=== PATIENT | female | born 1990 | race Caucasian/White ===

== ENCOUNTER 2019-04-30 10:12 | Emergency (ER) | payer OTHER ==
--- OUTSIDE RECORDS SUMMARY | 2019-04-30 10:14 | XMS REPORT ---
:1990 Author Organization [facility] Address [address] [place] [address] [place] [id number] Care Team Providers Name Role Phone Unavailable Unavailable Unavailable Problems This patient has no known problems. Allergies, Adverse Reactions, Alerts This patient has no known allergies or adverse reactions. Medications This patient has no known medications. Encounters Start End Encounter Admission Attending Care Care Encounter Date/Time Date/Time Type Type Clinicians Facility Department ID 2019-03-17 2019-03-17 Outpatient [facility] [id number] 15:36:00 15:36:00
--- OUTSIDE RECORDS SUMMARY | 2019-04-30 10:14 | XMS REPORT | Summary of Care ---
:1990 Author Organization [facility] [place] [address] Care Team Providers Name Role Phone Jorge A Frankisarah Cortez Primary Care Provider Reason for Visit Reason Comments Migraine Encounter Details Date Type Department Care Team Description 04/06/2019 Office Visit [facility] Kleber Rao MD Migraine Neurosurgery [address] [facility], [address] [place] [address] [place] [address] Allergies Active Allergy Reactions Severity Noted Date Comments Adhesive Rash High 04/06/2019 documented as of this encounter (statuses as of 04/08/2019) Medications No known medicationsdocumented as of this encounter (statuses as of 04/08/2019) Active Problems No known active problemsdocumented as of this encounter (statuses as of 2019) Social History Tobacco Use Types Packs/Day Years Used Date Never Smoker Smokeless Tobacco: Never Used Alcohol Use Drinks/Week oz/Week Comments Yes 3 Glasses of wine 3.0 Sex Assigned at Date Recorded Not on file Job Start Date Occupation Industry Not on file Not on file Not on file Travel History Travel Start Travel End No recent travel history available. documented as of this encounter Last Filed Vital Signs Vital Sign Reading Time Taken Comments Blood Pressure 121/83 04/06/2019 9:23 AM COUNTERSINKER Pulse 106 04/06/2019 9:23 AM COUNTERSINKER Temperature 36.5 C (97.7 F) 04/06/2019 9:23 AM COUNTERSINKER Respiratory Rate 18 04/06/2019 9:23 AM COUNTERSINKER Oxygen Saturation 100% 04/06/2019 9:23 AM COUNTERSINKER Inhaled Oxygen Concentration - - Weight 86.5 kg (190 lb 9.6 oz) 04/06/2019 9:23 AM COUNTERSINKER Height 162.6 cm (5' 4") 04/06/2019 9:23 AM COUNTERSINKER Body Mass Index 32.72 04/06/2019 9:23 AM COUNTERSINKER documented in this encounter Patient Instructions Patient InstructionsJenise Cheney NP - 04/06/2019 9:00 AM CSTFollow up as needed. Your Body mass index is 32.72 kg/m. Body mass index (BMI) can help you see if your weight is raising your risk for health problems. It uses a formula to compare how much you weigh with how tall you are. A BMI between 18.5 and 24.9 is considered healthy. A BMI between 25 and 29.9 is considered overweight. A BMI of 30 or higher is considered obese. If your BMI is in the normal range, it means that you have a lower risk for weight-related health problems. If your BMI is in the overweight or obese range , you may be at increased risk for weight-related health problems, such as high blood pressure, heart disease, stroke, arthritis or joint pain, anddiabetes. BMI is just one measure of your risk for weight-related health problems. You may be at higher risk for health problems if you are not active, you eat an unhealthy diet, or you drink too much alcohol oruse tobacco products. Follow-up care is a conde part of your treatment and safety. Be sure to make and go to all appointments, and call your doctor if you are having problems. It's also a good idea to know your test results and keep a list of the medicines you take. How can you care for yourself at home? Practice healthy eating habits. This includes eating plenty of fruits, vegetables, whole grains, lean protein, and low-fat dairy. Get at least 30 minutes of exercise 5 days a week or more. Brisk walking is a good choice. You also may want to do other activities, such as running, swimming, cycling, or playing tennis or team sports. Do not smoke. Smoking can increase your risk for health problems. If you need help quitting, talkto your doctor about stop-smoking programs and medicines. These can increase your chances of quitting for good. Limit alcohol Where can you learn more? Go to www.Hoot.Me.[facility].TheFamily Go to the Search tab with the magnifying glass on the right side of [employer] home page. Enter S176 in the search box to learn more about "Body Mass Index: Care Instructions." TERSINKER documented in this encounter Progress Notes Kleber Rao MD - 04/06/2019 9:00 AM CST Referring MD: Pauline Arredondo MD Ref: Ingris Francisco : 1990 DOS: 04/06/2019 Ms. Francisco was seen in the [facility] today as a consultation. Chief Complaint Patient presents with Migraine History of Present Illness: Ms. Francisco is a pleasant 28 y.o. left handed female with past medical history of anxiety, depression, and thyroid disorder, now referred to us with an abnormal MRI. The MRI was done on workup of migraine headaches. She has noticed some bleeding in her right ear along withchanges in hearing, along with tinnitus. Past Medical History: Diagnosis Date Anxiety Depression Thyroid disorder Past Surgical History: Procedure Laterality Date HX DENTAL SURGERY 2011 Family History Problem Relation Name Age of Onset Diabetes Mother Neurologic Disorder Mother Diabetes Father No Known Problems Sister No Known Problems Brother Personal Social History: Nonsmoker. Admits alcohol use. Medications: Ms. Francisco currently has no medications in their medication list. Allergies: Adhesive Review of Systems: Constitutional: No fever, chills, weight loss, or fatigue. HEAD: Denies head and neck trauma. EYES: Denies blurred vision or diplopia. Admits change in vision. EARS: Admits hearing loss and tinnitus. Nose: Denies sinus problems, No recent nose bleeds. Mouth: No pain or lesions. Neck: No neck swelling. Neurological: See HPI. Respiratory: Denies shortness of breath, asthma, or pneumonia. Admits cough. Cardiac: Denies irregular heart rhythm, MN, or swelling of feet, ankles or hands. Admits chest pain. GI: Denies vomiting, nausea, abdominal pain or change in bowel function. Admits poor appetite. : Denies polyuria, dysuria, or incontinence Endocrine: Denies excessive thirst, heat or cold intolerance. Admits rapid weight gain. Musculoskeletal: Denies weakness, joint pain, arthritis. Skin: Denies skin lesions or rash. Extremities: Denies swelling on extremities. Psychiatric: Denies mood swings. Admits anxiety and depression. Other: Review of system questionnaire form reviewed with the patient and scanned into chart. Physical Exam: Vitals: BP 121/83 (BP Location: right arm, Patient Position: Sitting, Cuff Size: large) | Pulse 106 | Temp 97.7 F (36.5 C) ( Oral) | Resp 18 | Ht 5' 4" (1.626 m) | Wt 190 lb 9.6 oz (86.5 kg) | SpO2 100 % | BMI 32.72 kg/m General Appearance: Well-nourished and well developed patient, in no acute distress. HEAD: Head is normocephalic and atraumatic. EYES: Pupils are equal and reactive to light, conjunctivae and sclera are clear. EARS: Hearing is intact. Mouth: Oropharynx is clear, gag reflex is intact. Neck: Neck is supple, without thyromegaly or mass. Cardiovascular: No carotid bruits. No abnormal heart sounds/murmurs. Normal distal pulses and no peripheral edema. Lungs: Clear to auscultation, wheezes, or crackles. Abdomen: Soft and non-tender with normal bowel sounds in all quadrants. No abnormal masses are palpable. Musculoskeletal: Gait is steady. Skin: Skin is intact, no lesions noted. Neurological Examination: Mental Status: Patient is alert and oriented to time, place, and self. Affect and attention are bothnormal. Speech and content of thought is normal. Comprehension is intact. Cerebellar Function: Normal [id number] and rapid alternating movements. No pronator drift. Romberg is negative. Cranial Nerves Exam: Pupils equal and reactive to light. Full ocular motility, no nystagmus, no visual field cut, facial movements symmetric, Hearing is present bilaterally, finger rub heard bilaterally. Closes eyes tightly. Palate moves in midline, able to shrug shoulder, and turn head against resistance, stick out tongue in midline. Palate and tongue symmetric. 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 Impression: Based on clinical history, radiological studies, and neurological examination, the patient presents with an abnormal MRI. Plan and Recommendations: I reviewed the images and met with the patient. 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 The headaches and bleeding from her ear are certainly not related to the loop. I explained that if the vascular loop noted on imaging were to be a problem, patient's present with hemifacial spasms or facial pain, which she does not have. Therefore, there is no need for intervention. I am recommending she follow up with her ENT and neurology, and me as needed. She voiced understanding and is in agreement with theplan. All of her questions were answered. documented in this encounter Plan of Treatment Health Maintenance Due Date Last Done Comments TETANUS SHOT (ADULT) 07/13/2006 HIV SCREENING 07/13/2009 CERVICAL CANCER SCREENING 3 YEAR FOLLOW UP 07/13/2012 FLU VACCINE > 6 MONTHS 09/09/2018 BMI FOLLOW UP PLAN 04/06/2020 04/06/2019 documented as of this encounter Results Not on filedocumented in this encounter Visit Diagnoses Diagnosis Abnormal finding on MRI of brain - Primary Nonspecific (abnormal) findings on radiological and other examination of skull and head documented in this encounter Insurance Payer Benefit Plan / Subscriber ID Effective Dates Phone Address Type Group [employer] OPEN ACCESS xxxxxxxxxx 2003-Present [address] POS HMO/POS/EPO/PPO [place] [employer] [id number] documented as of this encounter
[2019-04-30] MEDS ORDERED: HYDROCODONE/CHLORPHEN 5 ML/OSYR ONE (11:10)
--- NOTE | 2019-04-30 11:50 | RAD REPORT ---
EXAM DESCRIPTION: Genoveva Single View04/30/2019 11:37 am CLINICAL HISTORY: Cough COMPARISON: none FINDINGS: The lungs appear clear of acute infiltrate. The heart is normal size IMPRESSION: No acute abnormalities displayed
--- NOTE | 2019-04-30 12:09 | ER ---
Nurse's Notes [facility] Name: Ingris Francisco Age: 28 yrs Sex: Female : 1990 Arrival Date: 04/30/2019 Time: 10:13 Bed 5 Private MD: Diagnosis: Cough-PUI covid19 Presentation: 04/29 10:39 Chief complaint: Patient states: Fever since Thursday. Work sent me home since I was ca1 exposed to 2 positive patients. I work at [employer] as an [employer]. Reports cough, chest pains when coughing, SOB. Coronavirus screen: Patient reports a subjective fever or greater than 100.4F, or cough, or shortness of breath, or difficulty breathing. Surgical mask placed on patient. Patient moved to private room, placed in contact and droplet isolation with eye protection until further assessment. Patient denies travel on a cruise ship or to a country the [facility] currently lists as an affected area. Patient reports contact with known and/or suspected case of COVID-19. Infection Prevention Nurse has been notified of patient in isolation for probable COVID-19. Ebola Screen: Patient negative for fever greater than or equal to 101.5 degrees Fahrenheit, and additional compatible Ebola Virus Disease symptoms Patient denies exposure to infectious person. Patient denies travel to an Ebola-affected area in the 21 days before illness onset. No symptoms or risks identified at this time. Initial Sepsis Screen: Does the patient meet any 2 criteria? No. Patient's initial sepsis screen is negative. Does the patient have a suspected source of infection? No. Patient's initial sepsis screen is negative. Risk Assessment: Do you want to hurt yourself or someone else? Patient reports no desire to harm self or others. Onset of symptoms was April 30, 2019. 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 - Social history:: Smoking status: Patient denies any tobacco usage or history of. Screenin:49 Abuse screen: Denies threats or abuse. Denies injuries from another. Nutritional bp screening: No deficits noted. Tuberculosis screening: No symptoms or risk factors identified. Fall Risk None identified. Assessment: 10:48 General: SEE TRIAGE NOTE. PT PLACED ON DROPLET PRECAUTIONS. bp 11:20 General: Appears in no apparent distress. 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 Pain: Complains of pain in chest Pain currently is 5 out of 10 on a pain scale. Quality of pain is described as when coughing Pain began 4 days ago but symptoms became worse yesterday. Neuro: Level of Consciousness is awake, alert, obeys commands, Oriented to person, place, time, situation, Appropriate for age. Cardiovascular: Capillary refill < 3 seconds Patient's skin is warm and dry. Rhythm is regular. Respiratory: Reports shortness of breath at rest cough that is hacking, pain with cough Pain is 5 out of 10 on a pain scale. Airway is patent Respiratory effort is even, unlabored, Respiratory pattern is regular, symmetrical, pt with mask on Breath sounds are clear bilaterally. Onset: The symptoms/episode began/occurred 4 days ago, the patient has mild shortness of breath. GI: Patient currently denies nausea, vomiting. EENT:. Derm: Skin is intact, is healthy with good turgor, Skin is pink, warm \T\ dry. Musculoskeletal: Capillary refill < 3 seconds, Range of motion: intact in all extremities. 11:30 Reassessment: pt refused medication due to not having a ride, provider notified. em 12:30 Reassessment: Patient appears in no apparent distress at this time. Patient and/or em family updated on plan of care and expected duration. Pain level reassessed. Patient is alert, oriented x 3, equal unlabored respirations, skin warm/dry/pink. Vital Signs: 10:39 BP 148 / 86; Pulse 85; Resp 18 S; Temp 98.7(O); Pulse Ox 100% on R/A; Weight 86.18 kg ca1 (R); Height 5 ft. 5 in. (165.10 cm) (R); Pain 5/10; 10:39 Body Mass Index 31.62 (86.18 kg, 165.10 cm) ca1 ED Course: 10:13 Patient arrived in ED. ag5 10:18 Lauren Nguyen FNP-C [facility]. snw 10:18 Eddi Collins MD is Attending Physician. snw 10:42 Triage completed. ca1 10:44 Arm band placed on right wrist. ca1 10:45 Azael Kapadia, RN is Primary Nurse. bp 10:49 Patient has correct armband on for positive identification. Bed in low position. Call bp light in reach. Side rails up X2. 11:37 Chest Single View In Process Unspecified. EDMS 12:34 No provider procedures requiring assistance completed. Patient did not have IV access em during this emergency room visit. 13:16 Health Dept notified COVID test sent to lab/ [facility] # [id number], lab notified. eb Administered Medications: 12:34 Not Given (Patient Refused): Tussionex Pennkinetic ER 5 ml PO once em Outcome: 12:09 Discharge ordered by . snw 12:34 Discharged to home ambulatory. em 12:34 Condition: stable 12:34 Discharge instructions given to patient, Instructed on discharge instructions, follow up and referral plans. medication usage, self quarantine for remaining 9 days Demonstrated understanding of instructions, follow-up care, medications, Prescriptions given X 1. 12:35 Patient left the ED. em Addendum: 05/01/2019 16:15 Addendum: Other notified of negative COVID-19 swab results. Pt advised to continue to d m5 monitor symptoms and to return if symptoms worsend. Signatures: Dispatcher [employer] EDNM Evon Tavares, RN RN dm5 Lauren Nguyen FNP-C FNP-Horacio Abel, RN RN em Azael Kapadia, RN Dana Contreras eb Molly Falcon RN RN ca1 Johnny Rodriguez ag5 Corrections: (The following items were deleted from the chart) 04/29 11:44 10:39 Chief complaint: Patient states: Fever since Thursday. Work sent me home since I ca1 was exposed to 2 positive patients. Reports cough, chest pains when coughing, SOB. ca1
--- NOTE | 2019-04-30 12:09 | EDPHYS ---
Physician Documentation [facility] Name: Ingris Francisco Age: 28 yrs Sex: Female : 1990 Arrival Date: 04/30/2019 Time: 10:13 Bed 5 Private MD: ED Physician Eddi Collins HPI: 04/29 11:07 This 28 yrs old Female presents to ER via Ambulatory with complaints of snw Cough, Fever, Shortness Of Breath. 11:07 The patient or guardian reports cough, described as moderate, dry, chest pain, fever. snw Onset: The symptoms/episode began/occurred gradually, 3 day(s) ago, and became worse and became persistent. Severity of symptoms: At their worst the symptoms were moderate. Associated signs and symptoms: Pertinent positives: chest pain, fever, cough. The patient has not experienced similar symptoms in the past. The patient has not recently seen a physician. recent workplace exposure to 2 covid + coworkers. 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 - Social history:: Smoking status: Patient denies any tobacco usage or history of. ROS: 11:12 Eyes: Negative for injury, pain, redness, and discharge, ENT: Negative for injury, snw pain, and discharge, Neck: Negative for injury, pain, and swelling, Cardiovascular: Positive for chest pain, Negative for palpitations and edema, Respiratory: Negative for shortness of breath, wheezing, and positive for cough and pleuritic chest pain, Abdomen/GI: Negative for abdominal pain, nausea, vomiting, diarrhea, and constipation, Back: Negative for injury and pain, : Negative for injury, bleeding, discharge, and swelling, MS/Extremity: Negative for injury and deformity, Skin: Negative for injury, rash, and discoloration, Neuro: Negative for headache, weakness, numbness, tingling, and seizure, Psych: Negative for depression, anxiety, suicide ideation, homicidal ideation, and hallucinations. 11:12 Constitutional: Positive for fever, cough. Exam: 11:15 Constitutional: This is a well developed, well nourished patient who is awake, alert, snw and in no acute distress. Head/Face: Normocephalic, atraumatic. Eyes: Pupils equal round and reactive to light, extra-ocular motions intact. Lids and lashes normal. Conjunctiva and sclera are non-icteric and not injected. Cornea within normal limits. Periorbital areas with no swelling, redness, or edema. ENT: Nares patent. No nasal discharge, no septal abnormalities noted. Tympanic membranes are normal and external auditory canals are clear. Oropharynx with no redness, swelling, or masses, exudates, or evidence of obstruction, uvula midline. Mucous membranes moist. Neck: Trachea midline, no thyromegaly or masses palpated, and no cervical lymphadenopathy. Supple, full range of motion without nuchal rigidity, or vertebral point tenderness. No Meningismus. Chest/axilla: Normal chest wall appearance and motion. Nontender with no deformity. No lesions are appreciated. Abdomen/GI: Soft, non-tender, with normal bowel sounds. No distension or tympany. No guarding or rebound. No evidence of tenderness throughout. Back: No spinal tenderness. No costovertebral tenderness. Full range of motion. Skin: Warm, dry with normal turgor. Normal color with no rashes, no lesions, and no evidence of cellulitis. MS/ Extremity: Pulses equal, no cyanosis. Neurovascular intact. Full, normal range of motion. Neuro: Awake and alert, GCS 15, oriented to person, place, time, and situation. Cranial nerves II-XII grossly intact. Motor strength 5/5 in all extremities. Sensory grossly intact. Cerebellar exam normal. Normal gait. Psych: Awake, alert, with orientation to person, place and time. Behavior, mood, and affect are within normal limits. 11:15 Cardiovascular: Exam negative for acute changes. 11:15 Respiratory: the patient does not display signs of respiratory distress, Respirations: normal, Breath sounds: are clear throughout, + dry cough. Vital Signs: 10:39 BP 148 / 86; Pulse 85; Resp 18 S; Temp 98.7(O); Pulse Ox 100% on R/A; Weight 86.18 kg ca1 (R); Height 5 ft. 5 in. (165.10 cm) (R); Pain 5/10; 10:39 Body Mass Index 31.62 (86.18 kg, 165.10 cm) ca1 MDM: 10:47 Patient medically screened. snw 12:13 Data reviewed: vital signs, nurses notes. Data interpreted: Pulse oximetry: on room air snw is 100 %. Interpretation: normal. Counseling: I had a detailed discussion with the patient and/or guardian regarding: the historical points, exam findings, and any diagnostic results supporting the discharge/admit diagnosis, the presence of at least one elevated blood pressure reading (>120/80) during this emergency department visit, lab results, radiology results, Await Health Dept advice. Special discussion: Based on the patient's history, exam, and Dx evaluation, there is no indication for emergent intervention or inpatient Tx. It is understood by the patient/guardian that if the Sx's persist or worsen they need to return immediately for re-evaluation. Based on the history and exam findings, there is no indication for further emergent testing or inpatient evaluation. I discussed with the patient/guardian the need to see the primary care provider for further evaluation of the symptoms. 04/29 11:18 Order name: Chest Single View; Complete Time: 12:08 [facility] 04/29 12:22 Order name: Miscellaneous Test Lab [facility] 04/29 12:22 Order name: Influenza Screen (A ; Complete Time: 13:11 [facility] 04/29 10:57 Order name: consult Order-Health dept; Complete Time: 11:51 snw Administered Medications: 12:34 Not Given (Patient Refused): Tussionex Pennkinetic ER 5 ml PO once em Disposition: 13:46 Co-signature as Attending Physician, Eddi Collins MD I agree with the assessment and kdr plan of care. Disposition: 04/30/19 12:09 Discharged to Home. Impression: Cough - PUI covid19. - Condition is Stable. - Discharge Instructions: Cough, Adult. - Prescriptions for Tessalon Perles 100 mg Oral Capsule - take 1 capsule by ORAL route every 8 hours As needed; 15 capsule. - Medication Reconciliation Form, Thank You Letter, Antibiotic Education, Prescription Opioid Use form. - Follow up: Emergency Department; When: As needed; Reason: Worsening of condition. - Notes: Please avoid Motrin until test results come in. Your test has been sent to the [facility] Department. You should be notified of results in about one week. Please self quarantine until further notice. Signatures: Dispatcher [employer] EDMS Eddi Collins MD MD [facility] Lauren Nguyen, MEDIA LAW FACULTY MEMBER-C MEDIA LAW FACULTY MEMBER-Csnw Horacio Fernandez, RN RN em Molly Falcon RN RN ca1 Corrections: (The following items were deleted from the chart) 12:35 12:09 04/30/2019 12:09 Discharged to Home. Impression: Cough - PUI covid19. Condition em is Stable. Forms are Medication Reconciliation Form, Thank You Letter, Antibiotic Education, Prescription Opioid Use. Follow up: Emergency Department; When: As needed; Reason: Worsening of condition. snw
[2019-04-30 12:42] VITALS: BP 148/86; TEMP 98.7; O2SAT 100
== END 2019-04-30 12:35 | disposition home or self-care (01) ==
LOC: ER 10:12
DX: R05 Cough (principal); Z88.0 Allergy status to penicillin; Z20.828 Contact with and (suspected) exposure to other viral communicable diseases
CPT/HCPCS: 87804 ×2; 71045; 99283; U0001

== ENCOUNTER 2021-03-23 15:03 | Emergency (ER) | payer BC, OTHER ==
--- OUTSIDE RECORDS SUMMARY | 2021-03-23 15:07 | XMS REPORT | Continuity of Care Document ---
:1990 Author Organization [facility] t Address [address] [place] [address] Care Team Providers Name Role Phone PCP, DOES NOT HAVE A Primary Care Physician Unavailable Max FAIRCHILD Attending Clinician MAX Attending Clinician Unavailable Deon LEE Attending Clinician Dillon DE LEON Attending Clinician Unavailable KEREN DELANEY Attending Clinician Unavailable KAREN ROBISON Attending Clinician Unavailable THIAGO TIJERINA Attending Clinician Unavailable Triston Rao MD Attending Clinician Dillon DE LEON Admitting Clinician Unavailable KEREN DELANEY Admitting Clinician Unavailable KAREN ROBISON Admitting Clinician Unavailable Payers Payer Name Policy Type Policy Number Effective Date Expiration Date Dillon ivey [employer] [id number] 2018 OUT OF NETWORK 00:00:00 Problems Condition Condition Condition Status Onset Resolution Last Treating Co mments Source Name Details Category Date Date Treatment Clinician Date No known No known Disease Unive rs active active ity of problems problems [facility] Chronic Problem Active 2020-12-14 Jason frida cough 04:10:02 l Chronic [place] cough Active Problem 12/14/2020 [facility] Cough Problem Active 2020-12-14 [facility] variant 04:10:02 l asthma Cough [place] variant asthma Active Problem 12/14/2020 [facility] Severe Problem Active 2020-12-14 [facility] asthma 04:10:02 l Severe [place] asthma Active Problem 12/14/2020 [facility] Allergies, Adverse Reactions, Alerts Allergy Allergy Status Severity Reaction(s) Onset Inactive Treating Comm ents Source Name Type Date Date Clinician Penicill Propensi Active Rash 2020-02 Univer s in ty to 02-09 ity of adverse 00:00: [place] reaction 00 Medical s Branch PENICILL DRUG Active Rash 2020-02 Univers IN INGREDI 02-09 ity of 00:00: [place] 00 Medical Branch Adhesive Propensi Active Rash [facility] ty to 04-06 [place] adverse 00:00: of reaction 00 Medicin s to e substanc e Social History Social Habit Start Date Stop Date Quantity Comments Source Exposure to Not sure [facility] SARS-CoV-2 [facility] (event) [place] Tobacco use and 2021-03-20 2021-03-20 Never used Universit y of exposure 00:00:00 00:00:00 [facility] Alcohol intake 2019-04-06 2019-04-06 Current drinker [facility] of 00:00:00 00:00:00 of alcohol Medicine (finding) Sex Ass[birth year] At [birth year] Universit y of 00:00:00 00:00:00 [facility] Smoking Status Start Date Stop Date Source Never smoker [facility] Medications Ordered Filled Start Stop Current Ordering Indication Dosage Frequency Signature Comments Components Source Medication Medication Date Date Medication? Clinician (SIG) Name Name ketorolac 2021- No [id number] 30mg Un danielle (TORADOL) 03-21 ity of injection 01:00: 23:57 [place] 30 mg 00 :00 [facility] ketorolac 2021- No [id number] 30mg 30 mg, Univers (TORADOL) 03-21 Intramuscu ity of injection 01:00: 23:57 [place], ONCE, [place] 30 mg 00 :00 1 dose, On Thu03/20/21 Branch at 1900, Routine
physics faculty member approving Restricted medication : MIRYAM CONNOLLY cyclobenzap Yes [id number] 5mg Take 1 Univers rine 5 mg 2-09 tablet by ity o f tablet 00:00: mouth at [place] 00 bedtime. [facility] Branch cyclobenzap Yes [id number] 5mg Take 1 Univers rine 5 mg 2-09 tablet by ity o f tablet 00:00: mouth at [place] 00 bedtime. Medical Branch cyclobenzap Yes [id number] 5mg Take 1 Univers rine 5 mg 2-09 tablet by ity o f tablet 00:00: mouth at [place] 00 bedtime. Medical Branch ondansetron 2020-02 Yes [id number] 4mg Take 1 Univers (ZOFRAN - [id number] tablet by ity o f ODT) 4 mg 00:00: mouth [place] disintegrat 00 every 8 Medic al ing tablet (eight) Branch hours as needed for Nausea and Vomiting (N/V). ondansetron 2020-02 Yes [id number] 4mg Take 1 Univers (ZOFRAN - [id number] tablet by ity o f ODT) 4 mg 00:00: mouth [place] disintegrat 00 every 8 Medic al ing tablet (eight) Branch hours as needed for Nausea and Vomiting (N/V). ondansetron 2020-02 Yes [id number] 4mg Take 1 Univers (ZOFRAN 02-11 [id number] tablet by ity o f ODT) 4 mg 00:00: mouth [place] disintegrat 00 every 8 Medic al ing tablet (eight) Branch hours as needed for Nausea and Vomiting (N/V). ibuprofen 2020-02- No [id number] 800mg Take 1 Univers 800 mg 02-11 [id number] tablet by ity o f tablet 00:00: 00:00 mouth [place] 00 :00 every 6 Medical (six) Branch hours as needed for Pain (scale 4-6). ondansetron 2020-02 Yes [id number] 4mg Take 1 Univers (ZOFRAN) 4 1-01 tablet by ity of mg tablet 00:00: mouth [place] 00 every 8 Medical (eight) Branch hours as needed for Nausea and Vomiting (N/V). dicyclomine 2020-02 Yes [id number] 20mg Take 1 Univers 20 mg 1-01 tablet by ity of tablet 00:00: mouth [place] 00 every 6 Medical (six) Branch hours as needed for Abdominal pain. ondansetron 2020-02 Yes [id number] 4mg Take 1 Univers (ZOFRAN) 4 1-01 tablet by ity of mg tablet 00:00: mouth [place] 00 every 8 Medical (eight) Branch hours as needed for Nausea and Vomiting (N/V). dicyclomine 2020-02 Yes [id number] 20mg Take 1 Univers 20 mg 1-01 tablet by ity of tablet 00:00: mouth [place] 00 every 6 Medical (six) Branch hours as needed for Abdominal pain. ondansetron 2020-02 Yes [id number] 4mg Take 1 Univers (ZOFRAN) 4 1-01 tablet by ity of mg tablet 00:00: mouth [place] 00 every 8 Medical (eight) Branch hours as needed for Nausea and Vomiting (N/V). dicyclomine 2020-02 Yes [id number] 20mg Take 1 Univers 20 mg 1-01 tablet by ity of tablet 00:00: mouth [place] 00 every 6 Medical (six) Branch hours as needed for Abdominal pain. traMADoL 2020-02- No [id number] 50mg Take 1 Univer s (ULTRAM) 50 1-03-20 tablet by it y of mg tablet 00:00: 00:00 mouth [place] 00 :00 every 6 Medical (six) Branch hours as needed for Pain (scale 7-10). Indication s: acute pain PredniSONE 2020-02 Yes Everton Robison 2 tablet Memoria 0-28 l 00:00: Albuterol 2019-02 Yes [place] Robison 1 puff as [facility]oria Sulfate HFA 0-27 needed l 00:00: ProAir 2019-02 Yes [place] Robison 2 puff as Memoria RespiClick 0-23 needed l 00:00: Symbicort 2019-02 Yes Everton Robison 2 puffs Memoria 0-23 l 00:00: No known No [facility] of Medicin e Vital Signs Vital Name Observation Time Observation Value Comments Source Oxygen saturation in 2021-03-20 23:40:00 98 /min [facility] Arterial blood by [facility] Pulse oximetry Branch Systolic blood 2021-03-20 23:40:00 133 mm[Hg] [facility]iver [facility] Diastolic blood 2021-03-20 23:40:00 87 mm[Hg] [facility] 2021-03-20 23:40:00 71 /[facility] [place] [facility] Body temperature 2021-03-20 23:40:00 36.94 [facility] Res[facility] rate 2021-03-20 23:40:00 14 /min [facility] Body height 2021-03-20 23:40:00 165.1 cm Universi ty [facility] Body weight 2021-03-20 23:40:00 93.169 kg Universi ty [facility] BMI 2021-03-20 23:40:00 34.18 kg/m2 Universi ty [facility] Diastolic blood 2019-04-06 15:23:00 83 mm[Hg] [facility] Medicine Heart rate 2019-04-06 15:23:00 106 /min [facility] temperature 2019-04-06 15:23:00 36.5 Angy [facility] Respiratory rate 2019-04-06 15:23:00 18 /min [facility] Body height 2019-04-06 15:23:00 162.6 cm [facility] Body weight 2019-04-06 15:23:00 86.456 kg [facility] BMI 2019-04-06 15:23:00 32.72 kg/m2 [facility] Oxygen saturation in 2019-04-06 15:23:00 100 /min [facility] blood by [facility] Pulse oximetry Systolic blood 2019-04-06 15:23:00 121 mm[Hg] [facility] Medicine Procedures Procedure Date / Time Performed Performing Clinician Sourc e XR SACRUM AND COCCYX 2021-03-21 00:22:00 Miryam Connolly [facility] XR LUMBAR SPINE 2 VW 2021-03-21 00:22:00 Miryam Connloly [facility] Plan of Care Planned Activity Planned Date Details Comments Source Future Scheduled Test TETANUS SHOT (ADULT) [facility] [code = TETANUS SHOT Medicin e (ADULT)] Future Scheduled Test HIV SCREENING [code = [facility] of HIV SCREENING] Medicine Future Scheduled Test CERVICAL CANCER [facility] 3 YEAR Medicine FOLLOW UP [code = CERVICAL CANCER SCREENING 3 YEAR FOLLOW UP] Future Scheduled Test FLU VACCINE > 6 [facility] [code = FLU Medicine VACCINE > 6 MONTHS] Future Scheduled Test BMI FOLLOW UP PLAN [facility] [code = BMI FOLLOW UP Medici ne PLAN] Encounters Start End Encounter Admission Attending Care Care Encounter Source Date/Time Date/Time Type Type Clinicians Facility Department ID 2021-03-12 Outpatient [id number] Memoria 01:43:19 [id number] [place] [id number] 2021-03-20 2021-03-20 [facility] [id number] Univers 17:51:21 23:59:00 Encounter Miryam HEALTH [id number] ity of [place] [id number] Favian as DAYAMI?BLEA [id number] [facility] [address] [place] [address] OFFICE [facility] 2021-03-20 2021-03-20 [facility] [id number] Univers 17:51:21 23:59:00 Encounter [place] HEALTH [id number] ity of [place] [id number] Favian as DAYAMI?BLEA [id number] Nv elier [facility] [address] [facility] OFFICE [facility] 2021-03-20 2021-03-20 [id number] Univers 17:40:00 17:55:00 [facility] 2021-03-20 2021-03-20 Urgent Max [facility] [id number] Univers 17:40:00 17:55:00 Care Natasha Chavarria HEALTH [id number] ity of [place] [id number] Favian as DAYAMI?BLEA [id number] [facility] [address] [place] MEDICAL OFFICE BUILDING 2020-12-12 2020-12-12 Emergency X HALEY [facility] ERT [id number] Univers 11:39:00 17:05:00 ESTRADA william [facility] 2020-12-10 2020-12-10 Emergency X Sandhya [facility] ERT [id number] Univers 01:42:00 04:19:00 ity of [facility] 2020-08-03 2020-08-03 Outpatient ROBISON, [facility] [id number] Memoria 14:53:00 23:59:00 [facility] [place] [facility] 2019-10-03 2019-10-[address] [facility] [id number] Memoria 11:25:00 11:25:00 l [place] [facility] 2019-09-07 2019-09-07 Outpatient EN[facility]QUETA [facility] [id number] Memoria 14:57:00 23:59:00 l [place] [facility] 2019-05-16 2019-05-16 Emergency E JAREN TIJERINA FB FB [id number] FB 09:09:00 13:54:00 2019-04-06 2019-04-06 Office Kleber Rao [facility] [id number] [facility] 08:59:12 11:37:47 Visit e [place] AMBULATOR [id number] College Y [id number] Medi ev 300 e 2019-03-17 2019-03-17 Outpatient [facility] [id number] Memoria 15:36:00 15:36:00 l [place] [facility] Results This patient has no known results.
[2021-03-23] MEDS ORDERED: MORPHINE 4 MG/ML SYR ONE (15:45)
[2021-03-23] MEDS ORDERED: DIAZEPAM 10 MG/2 ML INJ SYRINGE ONE ×2 (15:46→18:03)
[2021-03-23] MEDS ORDERED: ONDANSETRON 4 MG/2 ML VIAL ONE (15:46)
[2021-03-23] MEDS ORDERED: KETOROLAC 30 MG/ML INJ ONE (15:46)
[2021-03-23] MEDS ORDERED: HYDROMORPHONE HCL 0.5 MG/0.5 ML INJ ONE (18:03)
[2021-03-23] MEDS ORDERED: dexAMETHasone 10 MG/ML VIAL ONE (18:03)
--- NOTE | 2021-03-23 19:02 | RAD REPORT ---
EXAM DESCRIPTION: RAD - Lumbar Spine 3 Views - 03/23/2021 6:04 pm CLINICAL HISTORY: low back pain COMPARISON: No comparisons FINDINGS: No acute fracture. No malalignment. Moderate disc height loss at L4-5 and mild disc height loss at L5-S1. IMPRESSION: No acute osseous abnormality involving the lumbar spine.
--- NOTE | 2021-03-23 19:07 | ER ---
Nurse's Notes [facility] Name: Ingris Torres Age: 30 yrs Sex: Female : 1990 Arrival Date: 03/23/2021 Time: 15:14 Bed 13 Private MD: Diagnosis: Low back pain Presentation: 03/23 15:17 Chief complaint: Patient states: Low back pain x 2 weeks, radiates to both legs, ph states, " It has been getting worse and today it felt like my legs gave out and I fell." Denies injury from fall, also reports increased pain when raising arms and headache. Coronavirus screen: Vaccine status: Patient reports receiving the 2nd dose of the covid vaccine. At this time, the client does not indicate any symptoms associated with coronavirus-19. Ebola Screen: No symptoms or risks identified at this time. Initial Sepsis Screen: Does the patient meet any 2 criteria? No. Patient's initial sepsis screen is negative. Does the patient have a suspected source of infection? No. Patient's initial sepsis screen is negative. Risk Assessment: Do you want to hurt yourself or someone else? Patient reports no desire to harm self or others. Onset of symptoms was March 23, 2021. 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 - Social history:: Smoking status: Patient denies any tobacco usage or history of. Screenin:59 Abuse screen: Denies threats or abuse. Denies injuries from another. Nutritional ic1 screening: No deficits noted. Tuberculosis screening: No symptoms or risk factors identified. Fall Risk None identified. Assessment: 15:58 General: Appears in no apparent distress. uncomfortable, Behavior is calm, cooperative. ic1 Pain: Complains of pain in back. Neuro: Level of Consciousness is awake, alert, obeys commands, Oriented to person, place, time, situation. Cardiovascular: No deficits noted. Respiratory: No deficits noted. GI: No deficits noted. : No deficits noted. EENT: No deficits noted. Derm: No deficits noted. 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 . Vital Signs: 15:17 BP 128 / 85; Pulse 87; Resp 18; Temp 97.6; Pulse Ox 100% on R/A; Weight 83.91 kg; ph Height 5 ft. 4 in. (162.56 cm); 15:17 Body Mass Index 31.75 (83.91 kg, 162.56 cm) ph ED Course: 15:14 Patient arrived in ED. rg4 15:19 Triage completed. ph 15:20 Arm band placed on Patient placed in an exam room. ph 15:26 Lonnie Fuentes PA is PHCP. [facility] 15:26 Eddi Collins MD is Attending Physician. [facility] 15:58 Janet Roberts, BRODIE is Primary Nurse. ic1 15:59 Patient has correct armband on for positive identification. Bed in low position. Call ic1 light in reach. Side rails up X2. 15:59 Inserted saline lock: 20 gauge in right antecubital area, using aseptic technique. ic1 Blood collected. 18:04 Lumbar Spine (3 Views) XRAY In Process Unspecified. EDMS 18:09 PHCP role handed off by Lonnie Fuentes PA pm1 18:09 Ceasar Siegel NP is PHCP. pm1 20:20 No provider procedures requiring assistance completed. IV discontinued, intact, ll3 bleeding controlled, No redness/swelling at site. Pressure dressing applied. Administered Medications: 16:01 Drug: morphine 4 mg Route: IVP; Site: right antecubital; almodovar 16:02 Follow up: Response: No adverse reaction almodovar 16:01 Drug: Zofran (Ondansetron) 4 mg Route: IVP; Site: right antecubital; almodovar 16:02 Follow up: Response: No adverse reaction almodovar 16:01 Drug: Valium (diazepam) 2 mg Route: IVP; Site: right antecubital; almodovar 16:02 Follow up: Response: No adverse reaction almodovar 16:01 Drug: Ketorolac 30 mg Route: IVP; Site: right antecubital; almodovar 16:01 Follow up: Response: No adverse reaction 18:13 Drug: Dilaudid (HYDROmorphone) 0.5 mg Route: IVP; Site: right antecubital; ic1 18:13 Drug: Valium (diazepam) 2 mg Route: IVP; Site: right antecubital; ic1 18:13 Drug: Decadron - Dexamethasone 10 mg Route: IVP; Site: right antecubital; ic1 20:20 Not Given (Patient Refused): Lidoderm Patch 5 % (700 mg/patch) 1 patches Topical once; ll3 leave on for 12 hours; cover most painful area; may cut into smaller pieces Point of Care Testing: Urine : 16:10 hCG Reading: Negative; Control Reading: Positive; ic1 Outcome: 19:06 Discharge ordered by MD. pm1 20:20 Discharged to home ambulatory, with family. ll3 20:20 Condition: stable 20:20 Discharge instructions given to patient, family, Instructed on discharge instructions, follow up and referral plans. medication usage, Demonstrated understanding of instructions, follow-up care, medications, Prescriptions given X 3. 20:21 Patient left the ED. ll3 Signatures: Dispatcher [employer] EDMS Lonnie Fuentes PA PA jmm Hall, Patricia RN RN Ceasar Rotmhan NP TRUCKER HAND pm1 Monalisa Arevalo rg4 Sudha Ocampo RN RN ll3 Lisha Clinton RN RN ha Creggett, Iesha, RN RN ic1
--- NOTE | 2021-03-23 19:07 | EDPHYS ---
Physician Documentation [facility] [place] [facility] Name: Ingris Torres Age: 30 yrs Sex: Female : 1990 Arrival Date: 03/23/2021 Time: 15:14 Bed 13 Private MD: ED Physician Eddi Collins HPI: 03/23 15:31 This 30 yrs old Female presents to ER via Ambulatory with complaints of Back Pain. jmm 15:31 The patient presents with pain that is acute, with no known mechanism of injury. The jmm symptoms are located in the low back. Onset: The symptoms/episode began/occurred today. The pain radiates to the right leg and left leg. Associated signs and symptoms: Pertinent negatives: fever. Modifying factors: The patient symptoms are alleviated by nothing, the patient symptoms are aggravated by movement. This is a 30-year-old female with history of depression, Corbin's that presents emerge department with lower back pain which radiates into both legs. Symptoms worsened to the extent today that the patient was unable to stand due to the pain. Denies dysuria, bowel or bladder problems. Patient denies previous surgical spine procedures.. 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 - Social history:: Smoking status: Patient denies any tobacco usage or history of. ROS: 15:31 Constitutional: Negative for fever, chills, and weight loss, Cardiovascular: Negative jmm for chest pain, palpitations, and edema, Respiratory: Negative for shortness of breath, cough, wheezing, and pleuritic chest pain. 15:31 Back: Positive for pain with movement. 15:31 All other systems are negative. Exam: 15:31 Constitutional: This is a well developed, well nourished patient who is awake, alert, jmm and in no acute distress. Head/Face: atraumatic. Eyes: EOMI, no conjunctival erythema appreciated ENT: Moist Mucus Membranes Neck: Trachea midline, Supple Chest/axilla: Normal chest wall appearance and motion. Cardiovascular: Regular rate and rhythm. No edema appreciated Respiratory: Normal respirations, no respiratory distress appreciated Abdomen/GI: Non distended, soft Back: Normal ROM Skin: General appearance color normal 15:31 Back: Diffuse pain on palpation of the lumbar spine. 15:31 Musculoskeletal/extremity: ROM: intact in all extremities. 15:31 Skin: Appearance: Color: normal in color. 15:31 Neuro: Orientation: is normal, Mentation: is normal, Memory: is normal, Extensor hallucis longus noted bilaterally. 15:31 Psych: Behavior/mood is pleasant, cooperative. Vital Signs: 15:17 BP 128 / 85; Pulse 87; Resp 18; Temp 97.6; Pulse Ox 100% on R/A; Weight 83.91 kg; ph Height 5 ft. 4 in. (162.56 cm); 15:17 Body Mass Index 31.75 (83.91 kg, 162.56 cm) ph MDM: 15:31 Patient medically screened. [facility] 18:08 Data reviewed: vital signs, nurses notes. Transition of care: After a detail discussion fernando of the patient's case, care is transferred to Ceasar Siegel NP. 19:06 Counseling: I had a detailed discussion with the patient and/or guardian regarding: the pm1 historical points, exam findings, and any diagnostic results supporting the discharge/admit diagnosis, radiology results, the need for outpatient follow up, a family practitioner, to return to the emergency department if symptoms worsen or persist or if there are any questions or concerns that arise at home. 19:13 ED course: patient reports that she was able to get some sleep with the decrease in pm1 pain to 5-6/10 with medications given in the ER. She reports improvement with the Valium and would prefer that as a prescription. 19:17 ED course: PMPaware reviewed. pm1 /12 15:36 Order name: Lumbar Spine (3 Views) XRAY; Complete Time: 19:05 [facility] 03/23 15:35 Order name: Saline Lock; Complete Time: 16:00 [facility] 03/23 15:35 Order name: Urine Test (obtain specimen); Complete Time: 16:09 [facility] Administered Medications: 16:01 Drug: morphine 4 mg Route: IVP; Site: right antecubital; 16:02 Follow up: Response: No adverse reaction almodovar 16:01 Drug: Zofran (Ondansetron) 4 mg Route: IVP; Site: right antecubital; almodovar 16:02 Follow up: Response: No adverse reaction almodovar 16:01 Drug: Valium (diazepam) 2 mg Route: IVP; Site: right antecubital; almodovar 16:02 Follow up: Response: No adverse reaction almodovar 16:01 Drug: Ketorolac 30 mg Route: IVP; Site: right antecubital; almodovar 16:01 Follow up: Response: No adverse reaction almodovar 18:13 Drug: Dilaudid (HYDROmorphone) 0.5 mg Route: IVP; Site: right antecubital; ic1 18:13 Drug: Valium (diazepam) 2 mg Route: IVP; Site: right antecubital; ic1 18:13 Drug: Decadron - Dexamethasone 10 mg Route: IVP; Site: right antecubital; ic1 20:20 Not Given (Patient Refused): Lidoderm Patch 5 % (700 mg/patch) 1 patches Topical once; ll3 leave on for 12 hours; cover most painful area; may cut into smaller pieces Point of Care Testing: Urine : 16:10 hCG Reading: Negative; Control Reading: Positive; ic1 Disposition: 03/24 19:26 Co-signature as Attending Physician, Eddi Collins MD I agree with the assessment and kdr plan of care. Disposition Summary: 03/23/21 19:06 Discharge Ordered Location: Home pm1 Problem: new pm1 Symptoms: have improved pm1 Condition: Stable pm1 Diagnosis - Low back pain pm1 Followup: pm1 - With: Emergency Department - When: As needed - Reason: Worsening of condition Followup: pm1 - With: Private Physician - When: 2 - 3 days - Reason: Recheck today's complaints, Continuance of care, Re-evaluation by your physician Discharge Instructions: - Discharge Summary Sheet pm1 - Acute Back Pain, Adult pm1 - Sciatica pm1 Forms: - Medication Reconciliation Form pm1 - Thank You Letter pm1 - Antibiotic Education pm1 - Prescription Opioid Use pm1 Prescriptions: - Valium 2 mg Oral Tablet - take 1 tablet by ORAL route every 8 hours As needed; 12 tablet; Refills: 0, pm1 Product Selection Permitted - Diclofenac Sodium 75 mg Oral tablet,delayed release (DR/EC) - take 1 tablet by ORAL route 2 times per day As needed; 30 tablet; Refills: 0, pm1 Product Selection Permitted - Medrol (Pedro Luis) 4 mg Oral Tablets, Dose Pack - take 1 tablet by ORAL route as directed - follow package instructions; 1 pm1 packet; Refills: 0, Product Selection Permitted Signatures: Dispatcher [employer] Eddi Alba MD MD kdr Mickail, Joel, PA PA jmm Hall, Patricia, RN RN Ceasar Rothman NP EARTH MOVER pm1 Lisha Clinton RN RN Janet Calix RN RN ic1 Sudha Ocampo RN ll3
[2021-03-23] MEDS ORDERED: LIDOCAINE 4% PATCH ONE (20:12)
[2021-03-23 20:26] VITALS: BP 128/85; TEMP 97.6; O2SAT 100
== END 2021-03-23 20:21 | disposition home or self-care (01) ==
LOC: ER 15:03
DX: M54.50 Low back pain, unspecified (principal); Z88.0 Allergy status to penicillin; Z91.048 Other nonmedicinal substance allergy status
CPT/HCPCS: 72100; 96375; 96374; 99284; J3360 ×2; J1100; J1170; J2405

== ENCOUNTER 2021-09-01 08:27 | Emergency (ER) | payer BC ==
--- OUTSIDE RECORDS SUMMARY | 2021-09-01 08:29 | XMS REPORT | Continuity of Care Document ---
:1990 Author Organization [facility] t Address [address] [place] [address] Care Team Providers Name Role Phone PCP, [...] Number Effective Date Expiration Date Dillon ivey [employer] [id number] 2018 OUT OF NETWORK 00:00:00 Problems Condition Condition Condition Status Onset Resolution Last Treating Co mments Source Name Details Category Date Date Treatment Clinician Date Chronic Problem Active 2020-12-14 Jason frida cough 04:10:02 l Chronic [place] cough Active Problem 12/14/2020 [facility] No known No known Disease Unive rs active active ity of problems problems [facility] Cough Problem Active 2020-12-14 Memor ia variant 04:10:02 l asthma Cough [place] variant asthma Active Problem 12/14/2020 [facility] Severe Problem Active 2020-12-14 Memor ia asthma 04:10:02 l Severe [place] asthma Active Problem 12/14/2020 [facility] [...] 00 Medical Branch Adhesive Propensi Active Rash [facility] ty to 04-06 [place] adverse 00:00: of reaction 00 Medicin s to e substanc e Social History Social Habit Start Date Stop Date Quantity Comments Source Exposure to Not sure [facility] SARS-CoV-2 [facility] (event) Branch Tobacco use and 2021-03-20 2021-03-20 Never used Universit y of exposure 00:00:00 00:00:00 [facility] Alcohol intake 2019-04-06 2019-04-06 Current drinker [facility] of 00:00:00 00:00:00 of alcohol Medicine (finding) Sex Ass[birth year] Universit [facility] of 00:00:00 00:00:00 [facility] Smoking Status Start Date Stop Date Source Never smoker [facility] Medications Ordered Filled Start Stop Current Ordering Indication Dosage Frequency Signature Comments Components Source Medication Medication Date Date Medication? Clinician (SIG) Name Name ketorolac 2021- No [id number] 30mg Un danielle (TORADOL) 03-21 ity of injection 01:00: 23:57 [place] 30 mg 00 :00 [facility] ketorolac 2021- No [id number] 30mg 30 mg, Univers (TORADOL) 03-21 Intramuscu ity of injection 01:00: 23:57 [place], ONCE, [place] 30 mg 00 :00 1 dose, On Thu03/20/21 Branch at 1900, Routine
member of parliament approving Restricted medication : MIRYAM CONNOLLY cyclobenzap Yes [id number] 5mg Take 1 Univers rine 5 mg 03-20 tablet by ity o f tablet 00:00: mouth at [place] 00 bedtime. [facility] cyclobenzap Yes [id number] 5mg Take 1 Univers rine 5 mg 2-09 tablet by ity o f tablet 00:00: mouth at [place] 00 bedtime. Medical Branch cyclobenzap Yes [id number] 5mg Take 1 Univers rine 5 mg 2-09 tablet by ity o f tablet 00:00: mouth at [place] 00 bedtime. Medical Branch ondansetron 2020-02 Yes [id number] 4mg Take 1 Univers (ZOFRAN -03 [id number] tablet by ity o f ODT) 4 mg 00:00: mouth [place] disintegrat 00 every 8 Medic al ing tablet (eight) Branch hours as needed for Nausea and Vomiting (N/V). ondansetron 2020-02 Yes [id number] 4mg Take 1 Univers (ZOFRAN - [id number] tablet by ity o f ODT) 4 mg 00:00: mouth [place] disintegrat 00 every 8 Medic al ing tablet (eight) Branch hours as needed for Nausea and Vomiting (N/V). ondansetron 2020-02 Yes [id number] 4mg Take 1 Univers (ZOFRAN -03 [id number] tablet by ity o f ODT) 4 mg 00:00: mouth [place] disintegrat 00 every 8 Medic al ing tablet (eight) Branch hours as needed for Nausea and Vomiting (N/V). ibuprofen 2020-02 No [id number] 800mg Take 1 Univers 800 mg 02-11 [id number] tablet by ity o f tablet 00:00: 00:00 mouth [place] 00 :00 every 6 Medical (six) Branch hours as needed for Pain (scale 4-6). ondansetron 2020-02 Yes [id number] 4mg Take 1 Univers (ZOFRAN) 4 1-01 tablet by ity of mg tablet 00:00: mouth [place] 00 every 8 Medical (eight) Branch hours as needed for Nausea and Vomiting (N/V). dicyclomine 2020-02 Yes [id number] 20mg Take 1 Univers 20 mg 1-01 tablet by ity of tablet 00:00: mouth [place] 00 every 6 Medical (six) Branch hours as needed for Abdominal pain. ondansetron 2020-02 Yes [id number] 4mg Take 1 Univers (ZOFRAN) 4 1-01 tablet by ity of mg tablet 00:00: mouth [place] 00 every 8 Medical (eight) Branch hours as needed for Nausea and Vomiting (N/V). dicyclomine 2020-02 Yes [id number] 20mg Take 1 Univers 20 mg 1-01 tablet by ity of tablet 00:00: mouth [place] 00 every 6 Medical (six) Branch hours as needed for Abdominal pain. ondansetron 2020-02 Yes [id number] 4mg Take 1 Univers (ZOFRAN) 4 1-01 tablet by ity of mg tablet 00:00: mouth [place] 00 every 8 Medical (eight) Branch hours as needed for Nausea and Vomiting (N/V). dicyclomine 2020-02 Yes [id number] 20mg Take 1 Univers 20 mg 1-01 tablet by ity of tablet 00:00: mouth [place] 00 every 6 Medical (six) Branch hours as needed for Abdominal pain. traMADoL 2020-02- No [id number] 50mg Take 1 Univer s (ULTRAM) 50 02-09 tablet by it y of mg tablet [...] Memoria 0-23 l 00:00: No known No [facility] of Medicin e Vital Signs Vital Name Observation Time Observation Value Comments Source Oxygen saturation in 2021-03-20 23:40:00 98 /min [facility] Arterial blood by [facility] Pulse oximetry Branch Systolic blood 2021-03-20 23:40:00 133 mm[Hg] Univer sity of pressure [facility] Diastolic blood 2021-03-20 23:40:00 87 mm[Hg] [facility] 2021-03-20 23:40:00 71 /min Universi ty of [facility] Body temperature 2021-03-20 23:40:00 36.94 [facility] Res[facility] 2021-03-20 23:40:00 14 /min [facility] Body height 2021-03-20 23:40:00 165.1 cm Universi ty [facility] Body weight 2021-03-20 23:40:00 93.169 kg Universi ty [facility] BMI 2021-03-20 23:40:00 34.18 kg/m2 [facility] Diastolic blood 2019-04-06 15:23:00 83 mm[Hg] [facility] Medicine Heart rate 2019-04-06 15:23:00 106 /min [facility] Body temperature 2019-04-06 15:23:00 36.5 Angy [facility] Respiratory rate 2019-04-06 15:23:00 18 /min [facility] Body height 2019-04-06 15:23:00 162.6 cm [facility] Body weight 2019-04-06 15:23:00 86.456 kg [facility] BMI 2019-04-06 15:23:00 32.72 kg/m2 [facility] Oxygen saturation in 2019-04-06 15:23:00 100 /min [facility] Arterial blood by [facility] Pulse oximetry Systolic blood 2019-04-06 15:23:00 121 mm[Hg] [facility] Medicine Procedures Procedure Date / Time Performed Performing Clinician Sourc e XR SACRUM AND COCCYX 2021-03-21 00:22:00 Miryam Connolly [facility] XR LUMBAR SPINE 2 VW 2021-03-21 00:22:00 Miryam Connolly [facility] Plan of Care Planned Activity Planned Date Details Comments Source Future Scheduled Test TETANUS SHOT (ADULT) [facility] [code = TETANUS SHOT Medicin e (ADULT)] Future Scheduled Test HIV SCREENING [code = [facility] of HIV SCREENING] Medicine Future Scheduled Test CERVICAL CANCER [facility] 3 YEAR Medicine FOLLOW UP [code = CERVICAL CANCER SCREENING 3 YEAR FOLLOW UP] Future Scheduled Test FLU VACCINE > 6 [facility] [code = FLU Medicine VACCINE > 6 MONTHS] Future Scheduled Test BMI FOLLOW UP PLAN [facility] [code = BMI FOLLOW UP Medici ne PLAN] Encounters Start End Encounter Admission Attending Care Care Encounter Source Date/Time Date/Time Type Type Clinicians Facility Department ID 2021-03-12 Outpatient [id number]- [id number] Memoria 01:43:19 [id number] [place] [id number] 2021-03-20 2021-03-20 [facility] [id number] Univers 17:51:21 23:59:00 Encounter [place] [facility] [id number] [facility]y [facility] [id number] Favian as DAYAMI?BLEA [id number] [facility] [address] [facility] OFFICE [facility] 2021-03-20 2021-03-20 [facility] [id number] Univers 17:51:21 23:59:00 Encounter [place] [facility] [id number] [facility] [id number] Favian as DAYAMI?BLEA [id number] [facility] 808 [facility] 2021-03-20 2021-03-20 [facility] [id number] Univers 17:40:00 17:55:00 MIRYAM william [facility] 2021-03-20 2021-03-20 [facility] [id number] Univers 17:40:00 17:55:00 Care Natasha Chavarria HEALTH [id number] ity of [place] [id number] Favian as DAYAMI?BLEA [id number] [facility] [address] [facility] OFFICE [facility] 2020-12-12 2020-12-12 Emergency X [facility] ERT [id number] Univers 11:39:00 17:05:00 ESTRADA [facility] 2020-12-10 2020-12-10 Emergency X Sandhya [facility] ERT [id number] Univers 01:42:00 04:19:00 ity of [facility] 2020-08-03 2020-08-03 Outpatient [facility] PUL [id number] Memoria 14:53:00 23:59:00 [facility] 2019-10-03 2019-10-03 Outpatient ENRIQUETA [facility] PUL [id number] Memoria 11:25:00 11:25:00 [facility] 2019-09-07 2019-09-07 Outpatient ENRIQUETA [facility] [id number] Memoria 14:57:00 23:59:00 [facility] 2019-05-16 2019-05-16 Emergency E JAREN TIJERINA FB FB [id number] [facility] 09:09:00 13:54:00 2019-04-06 2019-04-06 Office Kleber Rao [facility] [id number] [facility] 08:59:12 11:37:47 Visit e [place] AMBULATOR [id number] [employer] Y [id number] [facility] 300 e 2019-03-17 2019-03-17 Outpatient [facility] [id number] Memoria 15:36:00 15:36:00 [facility] Results This patient has no known results.
[2021-09-01 09:27] LABS: Urine Blood Trace-intact (Negative); Urine Glucose Negative (Negative); Urine Protein Negative (Negative); Urine Specific Gravity 1.025 (1.005-1.030)
[2021-09-01 09:28] LABS: Absolute Lymphocytes (CBC) 1.1 K/uL (0.7-4.9); Hematocrit 40.9 % (36.0-45.0); Lymphocytes % 24.9 % (15.3-44.8); MCV 82.4 fL (80-100); MPV 8.8 fL (7.6-11.3); RBC Red Blood Cell Count 4.96 M/uL (3.86-4.86)
[2021-09-01 09:28] LABS: Urine Specific Gravity/Preg 1.025 (1.005-1.030)
[2021-09-01 09:36] LABS: Urine RBC <5 /HPF (None Seen)
[2021-09-01 09:38] LABS: Urine Bacteria >50 /HPF (<20)
[2021-09-01 09:44] LABS: Albumin 3.8 g/dL (3.4-5.0); Bilirubin Total 0.7 mg/dL (0.2-1.0); Protein, Total 7.6 g/dL (6.4-8.2)
[2021-09-01] MEDS ORDERED: KETOROLAC 30 MG/ML INJ ONE (10:36)
--- NOTE | 2021-09-01 10:39 | RAD REPORT ---
EXAM DESCRIPTION: US - Transvaginal Study Probe - 09/01/2021 10:29 am CLINICAL HISTORY: LLQ PAIN X 2 WEEKS Pelvic pain. COMPARISON: Pelvis Complete dated 09/01/2021 FINDINGS: The uterus is normal in size, shape and echotexture. The uterus measures 8.2 x 4.2 x 5.1 c m with volume of 92 mL The endometrial stripe measures 9 mm, normal. Both ovaries are normal in size, shape and echotexture. The right ovary measures 3.5 x 1.6 x 3.1 cm with volume 9.1 mL. The left ovary measures 4.6 x 2.8 x 3.2 cm with volume of 21.5 mL. Multiple anec hoic cysts within both ovaries, some of which are peripherally oriented. No adnexal masses. Normal Doppler blood flow was demonstrated to both ovaries. No significant pelvic ascites. IMPRESSION: Bilateral ovarian blood flow.Numerous ovarian cysts oriented peripherally in the ovaries which can be seen with polycystic ovarian syndrome.
--- NOTE | 2021-09-01 10:40 | RAD REPORT ---
EXAM DESCRIPTION: US - Pelvis Complete - 09/01/2021 10:29 am CLINICAL HISTORY: LLQ pain, hx ovarian cyst Pelvic pain. COMPARISON: Transvaginal Study Probe dated 09/01/2021 FINDINGS: The uterus is normal in size, shape and echotexture. The uterus measures 8.2 cm in long ax is. The endometrial stripe measures 9 mm, normal Both ovaries are normal in size, shape and echotexture. The right ovary measures 3.5 x 1.6 x 3.1 cm with volume 9.1 mL. The left ovary measures 4.6 x 2.8 x 3.2 cm with volume of 21.5 mL. Multiple anec hoic cysts within both ovaries, some of which are peripherally oriented. No adnexal masses. Normal Doppler blood flow was demonstrated to both ovaries. No significant pelvic ascites. IMPRESSION: Bilateral ovarian blood flow. Small peripherally oriented cysts in the ovaries bilateral ly can be seen with polycystic ovarian syndrome.
--- NOTE | 2021-09-01 10:50 | ER ---
Nurse's Notes [facility] Name: Ingris Torres Age: 31 yrs Sex: Female : 1990 Arrival Date: 09/01/2021 Time: 08:28 Bed 19 Private MD: Diagnosis: UTI/ Urinary tract infection, site not specified;Unspecified ovarian cyst, unspecified side Presentation: 09/01 08:40 Chief complaint: Patient states: she is having left sided ovary pain. Patient reports ap3 being evaluated by her PCP Thursday08/28/21 where she had an ultrasound showing a cyst on her left ovary. Patient was informed by her PCP to follow up with the ED if her pain got worse or she started having a fever. patient reports having a fever last night of 101, which resolved with Tylenol. Patient also states her pain has gotten worse since her visit with her PCP. Coronavirus screen: At this time, the client does not indicate any symptoms associated with coronavirus-19. Ebola Screen: No symptoms or risks identified at this time. Initial Sepsis Screen: Does the patient meet any 2 criteria? No. Patient's initial sepsis screen is negative. Does the patient have a suspected source of infection? No. Patient's initial sepsis screen is negative. Risk Assessment: Do you want to hurt yourself or someone else? Patient reports no desire to harm self or others. Onset of symptoms was August 21, 2021. 08:40 Method Of Arrival: Ambulatory ap3 08:40 Acuity: CLEOPATRA 3 ap3 Triage Assessment: 08:45 General: Appears uncomfortable, Behavior is calm, cooperative, appropriate for age. ap3 Pain: Complains of pain in anterior aspect of left lateral abdomen Pain currently is 8 out of 10 on a pain scale. Pain began gradually, over the last week and a half. Neuro: Level of Consciousness is awake, alert, obeys commands, Oriented to person, place, time, situation, Gait is steady, Speech is normal. Cardiovascular: Patient's skin is warm and dry. Respiratory: Airway is patent Respiratory effort is even, unlabored. : Reports pain in left flank(s). 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 - Social history:: Smoking status: Patient denies any tobacco usage or history of. Screenin:45 Fall Risk None identified. bp 08:46 Abuse screen: Denies threats or abuse. Nutritional screening: No deficits noted. ap3 Tuberculosis screening: No symptoms or risk factors identified. Assessment: 08:45 General: SEE TRIAGE NOTE. bp 09:54 Reassessment: US AT B/S. bp 10:38 Reassessment: No changes from previously documented assessment. Patient and/or family bp updated on plan of care and expected duration. Pain level reassessed. US COMPLETE. 10:59 Reassessment: PT D/C HOME AMBULATORY, DX WITH UTI. bp Vital Signs: 08:40 BP 119 / 87; Pulse 90; Resp 17; Temp 98.1; Pulse Ox 100% ; Weight 81.65 kg; Height 5 ap3 ft. 5 in. (165.10 cm); Pain 8/10; 10:38 BP 115 / 76; Pulse 72; Resp 16; Pulse Ox 99% ; bp 08:40 Body Mass Index 29.95 (81.65 kg, 165.10 cm) ap3 ED Course: 08:28 Patient arrived in ED. as 08:30 Tamara Camacho is Attending Physician. sd2 08:43 Triage completed. ap3 08:45 Patient has correct armband on for positive identification. Placed in gown. Bed in low bp position. Call light in reach. Side rails up X2. 08:46 Arm band placed on left wrist. ap3 08:48 Azael Kapadia, RN is Primary Nurse. bp 09:15 Inserted saline lock: 20 gauge in right antecubital area, using aseptic technique. bp Blood collected. 10:31 US Pelvis Complete In Process Unspecified. EDMS 10:31 Transvaginal Study Probe In Process Unspecified. EDMS 10:59 No provider procedures requiring assistance completed. IV discontinued, intact, bp bleeding controlled, No redness/swelling at site. Pressure dressing applied. Administered Medications: 10:38 Drug: Ketorolac 15 mg Route: IVP; Site: right antecubital; bp 10:58 Follow up: Response: Pain is decreased bp 10:55 Drug: Macrobid (nitrofurantoin) 100 mg Route: PO; bp 10:59 Follow up: Response: No adverse reaction bp Medication: 08:45 VIS not applicable for this client. bp Outcome: 10:49 Discharge ordered by . sd2 10:59 Discharged to home ambulatory. bp 10:59 Condition: stable 10:59 Discharge instructions given to patient, Instructed on discharge instructions, follow up and referral plans. medication usage, Demonstrated understanding of instructions, follow-up care, medications, Prescriptions given X 2. 10:59 Patient left the ED. bp Signatures: Dispatcher [employer] EDMS Adwoa Patton Brian, RN RN bp Ariadna Alfaro RN RN ap3 Tamara Camacho, MD FAIRCHILD sd2
--- NOTE | 2021-09-01 10:50 | EDPHYS ---
Physician Documentation [facility] Name: Ingris Torres Age: 31 yrs Sex: Female : 1990 Arrival Date: 09/01/2021 Time: 08:28 Bed 19 Private MD: ED Physician Tamara Camacho HPI: 09/01 08:55 This 31 yrs old Female presents to ER via Ambulatory with complaints of Pelvic Pain. sd2 08:55 31 yo F presents with CC of L sided pelvic pain. Started last week and had US performed sd2 that showed L ovarian cyst. Pt reports pain has gradually worsened since then. She believes she was told the cyst was 4 or 5 cm. She has been taking TYlenol with minimal relief and reports a temp of 100.1F this AM upon awakening with associated nausea. OBGYN told her if pain was worsening or fever to come to the ER. She denies any CP, SOB, vomiting, diarrhea or urinary symptoms. LMP 07/26/21. Reports she is late for her period but took a home test that was negative.. 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 - Social history:: Smoking status: Patient denies any tobacco usage or history of. ROS: 08:55 Constitutional: Negative for fever, chills, and weight loss, Cardiovascular: Negative sd2 for chest pain, palpitations, and edema, Respiratory: Negative for shortness of breath, cough, wheezing. Abdomen/GI: Positive for abdominal pain and nausea. Negative for vomiting and diarrhea. : Negative for dysuria, urinary frequency, hesitancy, urgency and hematuria. MS/Extremity: Negative for injury and deformity, Skin: Negative for injury, rash, and discoloration, Neuro: Negative for headache, numbness and tingling. Exam: 08:55 Constitutional: This is a well developed, well nourished patient who is awake, alert, sd2 and in no acute distress. Head/Face: Normocephalic, atraumatic. Eyes: EOMI, normal conjunctiva bilaterally Chest/axilla: Normal chest wall appearance and motion. Nontender with no deformity. Cardiovascular: Regular rate and rhythm with a normal S1 and S2. No gallops, murmurs, or rubs. 2+ distal pulses. Respiratory: Lungs have equal breath sounds bilaterally, clear to auscultation and percussion. No rales, rhonchi or wheezes noted. No increased work of breathing, no retractions or nasal flaring. Abdomen/GI: Soft, TTP of LLQ and L pelvic area. No guarding or rebound tenderness. No McBurney's point tenderness. Negative Rovsing's sign. Skin: Warm, dry with normal turgor. Normal color with no rashes, no lesions, and no evidence of cellulitis. MS/ Extremity: Pulses equal, no cyanosis. Neurovascular intact. Full, normal range of motion. Ambulatory without difficulty. Psych: Awake, alert, with orientation to person, place and time. Behavior, mood, and affect are within normal limits. Vital Signs: 08:40 BP 119 / 87; Pulse 90; Resp 17; Temp 98.1; Pulse Ox 100% ; Weight 81.65 kg; Height 5 ap3 ft. 5 in. (165.10 cm); Pain 8/10; 10:38 BP 115 / 76; Pulse 72; Resp 16; Pulse Ox 99% ; bp 08:40 Body Mass Index 29.95 (81.65 kg, 165.10 cm) ap3 MDM: 08:53 Patient medically screened. sd2 08:55 Differential Diagnosis Gastritis, ACS, pancreatitis, GB pathology, diverticulitis, SBO, sd2 UTI, appendicitis, IUP, ectopic , ovarian torsion, TOA among others. Data reviewed: vital signs, nurses notes. 10:47 Data reviewed: lab test result(s), radiologic studies. Counseling: I had a detailed sd2 discussion with the patient and/or guardian regarding: the historical points, exam findings, and any diagnostic results supporting the discharge/admit diagnosis, lab results, radiology results, the need for outpatient follow up, to return to the emergency department if symptoms worsen or persist or if there are any questions or concerns that arise at home. Medical screen evaluation completed. [facility] ED course: Labs and imaging reviewed. UA consistent with UTI. US with multiple small cysts to bilateral ovaries with flow to both and no evidence of torsion. Pain improving after Toradol. Will discharge with oral antibiotics and OBGYN follow up. Pt verbalizes understanding of discharge plan and strict return precautions.. 09/01 08:54 Order name: CBC with Diff; Complete Time: 10:19 sd2 09/01 08:54 Order name: CMP; Complete Time: 10:19 sd2 09/01 08:54 Order name: Lipase; Complete Time: 10:19 sd2 09/01 08:54 Order name: Urine Microscopic Only; Complete Time: 10:19 sd2 09/01 09:26 Order name: Urine --Ancillary (enter results) eb 09/01 09:27 Order name: Urine Dipstick-Ancillary; Complete Time: 10:19 EDMS 09/01 08:54 Order name: Urine Dipstick-Ancillary (obtain specimen); Complete Time: 09:22 sd2 09/01 08:54 Order name: Urine Test (obtain specimen); Complete Time: 09:22 sd2 09/01 08:54 Order name: US Pelvis Complete; Complete Time: 10:41 sd2 09/01 09:29 Order name: Urine --Ancillary; Complete Time: 10:19 EDMS 09/01 09:40 Order name: Urine Culture EDWV 09/01 10:28 Order name: Transvaginal Study Probe; Complete Time: 10:41 EDMS Administered Medications: 10:38 Drug: Ketorolac 15 mg Route: IVP; Site: right antecubital; bp 10:58 Follow up: Response: Pain is decreased bp 10:55 Drug: Macrobid (nitrofurantoin) 100 mg Route: PO; bp 10:59 Follow up: Response: No adverse reaction bp Disposition Summary: 09/01/21 10:49 Discharge Ordered Location: Home sd2 Problem: an ongoing problem sd2 Symptoms: have improved sd2 Condition: Stable sd2 Diagnosis - UTI/ Urinary tract infection, site not specified sd2 - Unspecified ovarian cyst, unspecified side sd2 Followup: sd2 - With: Private Physician - When: 2 - 3 days - Reason: Recheck today's complaints, Continuance of care, Re-evaluation by your physician Followup: sd2 - With: Emergency Department - When: As needed - Reason: Discharge Instructions: - Discharge Summary Sheet sd2 - Ovarian Cyst sd2 - Urinary Tract Infection, Adult sd2 Forms: - Work release form eb - Medication Reconciliation Form sd2 - Thank You Letter sd2 - Antibiotic Education sd2 - Prescription Opioid Use sd2 Prescriptions: - Anaprox DS 550 mg Oral Tablet - take 1 tablet by ORAL route every 12 hours As needed; 20 tablet; Refills: 0, sd2 Product Selection Permitted - Macrobid 100 mg Oral Capsule - take 1 capsule by ORAL route every 12 hours for 10 days; 20 capsule; Refills: sd2 0, Product Selection Permitted Signatures: Dispatcher [employer] Azael Cosme RN RN bp Prokisch, Amanda, RN RN ap3 Dunlop, Stephanie, MD MD sd2
[2021-09-01] MEDS ORDERED: NITROFURAN MACRO 100 MG CAP PO ONE (11:01)
[2021-09-01 11:05] VITALS: TEMP 98.1
[2021-09-01 11:06] VITALS: BP 115/76; O2SAT 99
== END 2021-09-01 10:59 | disposition home or self-care (01) ==
LOC: ER 08:27
DX: N39.0 Urinary tract infection, site not specified (principal); N83.209 Unspecified ovarian cyst, unspecified side; F32.A Depression, unspecified; Z88.0 Allergy status to penicillin
CPT/HCPCS: 36415; 76830; 76856; 80053; 81003; 81015; 81025; 83690; 85025; 87086; 87088; 96374; 99284

== ENCOUNTER 2024-06-17 09:17 | Emergency (ER) | payer BC ==
[2024-06-17] MEDS ORDERED: ONDANSETRON 4 MG/2 ML VIAL ONE (09:35)
[2024-06-17] MEDS ORDERED: NA CHLORIDE 0.9% 1,000 ML ONE (09:35)
[2024-06-17 10:00] LABS: Absolute Basophils 0.1 K/uL (0-0.5); Absolute Lymphocytes (CBC) 1.9 K/uL (0.7-4.9); Absolute Monocytes 0.3 K/uL (0.1-1.3); Absolute Neutrophil 4.2 K/uL (1.8-8.0); Basophils % 0.9 % (0-1.3); Hematocrit 44.7 % (36.0-45.0); Hemoglobin 15.6 g/dL (12.0-15.0); Lymphocytes % 28.8 % (15.3-44.8); MCH 31.2 pg (27.0-35.0); MCHC 34.8 g/dL (32.0-36.0); MCV 89.7 fL (80-100); MPV 8.8 fL (7.6-11.3); Monocytes % 5.2 % (3.3-12.3); Neutrophils % 65.1 % (41.7-73.7); Nucleated Red Blood Cells % 0.2 % (0-0); Platelets 271 thou/uL (152-406); RBC Red Blood Cell Count 4.99 M/uL (3.86-4.86); Red Cell Distribution Width 13.7 % (12.1-15.2)
[2024-06-17 10:04] LABS: Specific Gravity 1.029 (1.005-1.030)
[2024-06-17 10:14] LABS: PTT, Activated Partial Thromb 28.3 SECONDS (27.2-37.4); Protime INR 1.06
[2024-06-17 10:16] LABS: Anion Gap 11.8 mEq/L (5.0-15.0); Potassium 3.8 mEq/L (3.5-5.1)
--- NOTE | 2024-06-17 11:01 | RAD REPORT ---
EXAMINATION: Head C Spine Mpr Wo Con CLINICAL INDICATION: Female, 33 years old. head injury, headache, vomiting TECHNIQUE: Axial CT images from the skull base to the vertex without intravenous contrast. Axial CT i mages through the cervical spine were obtained without intravenous contrast. Sagittal and coronal reformatted images were created from the data set. Coronal and sagittal reformatted images were creat ed from the data set. One or more of the following dose reduction techniques were used: Automated exposure control, adjustment of the mA and/or kV according to patient size, and/or iterative reconstr uction. Unless otherwise specified, incidental findings do not require dedicated imaging follow-up. [id number]. COMPARISON: 04/05/2016 FINDINGS: Head: INTRACRANIAL: No definite intracranial hemorrhage. Small focus of extra-axial hyperdensity at the rig ht frontal lobe on image 21, series 201 is favored beam hardening artifact. This is less conspicuous on the sagittal and coronal reformats.. No hydrocephalus. No mass effect or midline shift . No significant white matter disease. VASCULATURE: No visualized abnormalities in the arteries or dural venous sinuses. SCALP/SKULL: No calvarial fracture identified. No acute soft tissue abnormality. SINUSES: The visualized paranasal sinuses are mostly clear. No significant mastoid fluid. Cervical spine: ALIGNMENT: The cervical spine has normal alignment without scoliosis or spondylolisthesis. BONE: Vertebral body heights are maintained. No aggressive osseous lesions. DEGENERATIVE: No significant focal degenerative changes. SOFT TISSUE: No significant abnormalities in the soft tissue of the neck. The visualized lung apices are clear. IMPRESSION: Small focus of hyperdensity at the right frontal lobe favored to represent artifact. No definite acut e findings identified. No acute fracture or traumatic malalignment of the cervical spine.
--- NOTE | 2024-06-17 11:26 | EDPHYS ---
Physician Documentation [facility] Name: Ingris Torres Age: 33 yrs Sex: Female : 1990 Arrival Date: 06/17/2024 Time: 09:17 Bed 16 Private MD: ED Physician Clarke Kaminski HPI: 06/17 09:35 This 33 yrs old Female presents to ER via Ambulatory with complaints of rn Nausea/Vomiting, Head Injury-Adult - 06/15/24. 09:35 The patient or guardian reports injury, pain. The complaints affect the left side of rn the back of head, left occipital area, left base of the skull, right side of the back of head, right occipital area and right base of the skull. Onset: The symptoms/episode began/occurred 2 day(s) ago. Associated signs and symptoms: Pertinent positives: nausea, neck pain, vomiting. Severity of symptoms: At their worst the symptoms were moderate, in the emergency department the symptoms are unchanged. Patient reports fell backward 2 days ago and struck back of head on bottom bunk bed board. Unsure if lost consciousness at that time. Patient reports since then has been having nausea and vomiting and headache. Mild neck pain. No other injury. Seen by PCP and diagnosed with concussion but symptoms have not improved so came in for imaging.. 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 - Infectious Disease History:: Denies. - Family history:: not pertinent. - Social history:: Smoking status: Patient denies any tobacco usage or history of. - Hospitalizations: : No recent hospitalization is reported. ROS: 09:35 Constitutional: Negative for fever, chills, and weight loss, Neck: Positive for neck rn pain Cardiovascular: Negative for chest pain, palpitations, and edema, Respiratory: Negative for shortness of breath, cough, wheezing, and pleuritic chest pain, Abdomen/GI: Positive for nausea and vomiting Back: Negative for injury and pain, MS/Extremity: Negative for injury and deformity, Skin: Negative for injury, rash, and discoloration, Neuro: Positive for headache, negative for focal weakness or numbness. Exam: 09:35 Constitutional: This is a well developed, well nourished patient who is awake, alert, rn and in no acute distress. Ambulatory to room without assistance or difficulty Head/Face: Normocephalic, atraumatic. Eyes: No periorbital ecchymosis, pupils round and reactive to light ENT: No periauricular hematoma or ecchymosis noted Neck: No midline cervical tenderness Cardiovascular: Regular rate and rhythm. No pulse deficits. Respiratory: No increased work of breathing, no retractions or nasal flaring. MS/ Extremity: Pulses equal, no cyanosis. Neurovascular intact. Full, normal range of motion. Equal circumference. Neuro: Awake and alert, GCS 15, oriented to person, place, time, and situation. Cranial nerves II-XII grossly intact. Motor strength 5/5 in all extremities. Sensory grossly intact. Cerebellar exam normal. Normal gait. Vital Signs: 09:37 BP 147 / 90; Pulse 73; Resp 16; Temp 98.1; Pulse Ox 100% on R/A; Weight 95.25 kg; iw Height 5 ft. 4 in. ; Pain 7/10; 10:11 BP 126 / 84; kc6 11:33 BP 117 / 74; Pulse 87; Resp 18 S; Pulse Ox 98% on R/A; kc6 09:37 Body Mass Index 36.05 (95.25 kg, 162.56 cm) iw 09:37 Pain Scale: Adult iw Haydee Coma Score: 09:35 Eye Response: spontaneous(4). Motor Response: obeys commands(6). Verbal Response: rn oriented(5). Total: 15. 11:23 Eye Response: spontaneous(4). Motor Response: obeys commands(6). Verbal Response: rn oriented(5). Total: 15. MDM: 09:19 Medical Screening Exam initiated rn 11:23 Differential diagnosis: Contusion of Hematoma on Intracranial bleed- Concussion rn cerebral contusion. Data reviewed: vital signs, nurses notes, radiologic studies, CT scan, and as a result, I will discharge patient. Counseling: I had a detailed discussion with the patient and/or guardian regarding the historical points, exam findings, and any diagnostic results supporting the discharge/admit diagnosis, lab results, radiology results, the need for outpatient follow up, to return to the emergency department if symptoms worsen or persist or if there are any questions or concerns that arise at home. Response to treatment: the patient's symptoms have mildly improved after treatment, and as a result, I will discharge patient. Special discussion: Based on the patient's history, exam and DX evaluation, there is no indication for emergent intervention or inpatient TX. It is understood by the patient/guardian that if the SXs persist or worsen they need to return immediately for re-evaluation. I discussed with the patient/guardian in detail that at this point there is no indication for admission to the hospital. It is understood, however, that if the symptoms persist or worsen the patient needs to return immediately for re-evaluation. ED course: CT head images negative for bleeding or fracture per my interpretation. Patient feels better but still little nauseated. Will give Phenergan. Will discharge home as concussion and given concussion precautions. I have personally reviewed all of the results, including but not limited to blood tests and imaging deemed necessary to safely discharge this patient at this time. All results given to and printed out for patient. I personally went over all the results with the patient and answered all questions. Patient will follow-up with PCP and or specialist as discussed. Return precautions given and understood.. 06/17 09:35 Order name: Test, Urine; Complete Time: 10: rn 06/17 09:35 Order name: CBC with Diff; Complete Time: 10: rn 06/17 09:35 Order name: Basic Metabolic Panel; Complete Time: 10: rn 06/17 09:35 Order name: Protime (+inr); Complete Time: 10:17 rn 06/17 09:35 Order name: Ptt, Activated; Complete Time: 10: rn 06/17 09:34 Order name: CT Head C Spine; Complete Time: 11:02 rn 06/17 09:35 Order name: IV Start; Complete Time: 09:53 rn Administered Medications: :53 Drug: NS 0.9% IV 1000 ml IV at 1000 ml once; to be given as a bolus over 60 minutes kc6 Route: IV; Rate: 1000 ml; Site: left forearm; 10:49 Follow up: Response: No adverse reaction; IV Status: Completed infusion; IV Intake: kc6 1000ml 09:54 Drug: Ondansetron IVP 4 mg IVP once; over 2 minutes Route: IVP; Site: left forearm; kc6 10:48 Follow up: Response: No adverse reaction; Nausea is decreased kc6 11:32 Drug: Promethazine IVP 12.5 mg IVP once Route: IVP; Site: left forearm; kc6 11:54 Follow up: Response: No adverse reaction; Nausea is decreased kc6 Disposition Summary: 06/17/24 11:25 Discharge Ordered Notes: Location: Home rn Problem: new rn Symptoms: have improved rn Condition: Stable rn Diagnosis - Unspecified injury of head, initial encounter rn - Concussion without loss of consciousness rn - Postconcussional syndrome rn Followup: rn - With: Private Physician - When: As needed - Reason: Recheck today's complaints, Re-evaluation by your physician Discharge Instructions: - Discharge Summary Sheet rn - Concussion, Adult rn - Head Injury, Adult rn - Post-Concussion Syndrome rn Forms: - Medication Reconciliation Form rn - Antibiotic product marketing intern - Prescription Opioid Use rn - Patient Portal Instructions rn - Leadership Thank You Letter rn - Work release form kc6 Prescriptions: - ondansetron 4 mg Oral Tablet,disintegrating - take 1 tablet ORAL route every 8 hours As needed as needed for nausea and rn vomiting; 12 tablet; Refills: 0, Product Selection Permitted Signatures: Dispatcher [employer] Adilia Foley RN RN iw Nieto, Roman, MD MD rn Campbell, Kaitlyn, RN RN kc6 Corrections: (The following items were deleted from the chart) 09:35 09:35 Test, Urine+UC.LAB.BRZ ordered. EDMS EDMS 09:35 09:35 CBC+H.LAB.BRZ ordered. EDMS EDMS 09:35 09:35 BASIC METABOLIC PANEL+C.LAB.BRZ ordered. EDMS EDMS 09:35 09:35 PROTIME (+INR)+COAG.LAB.BRZ ordered. EDMS EDMS 09:35 09:35 PTT, ACTIVATED+COAG.LAB.BRZ ordered. EDMS EDMS
--- NOTE | 2024-06-17 11:26 | ER ---
Nurse's Notes [facility] Name: Ingris Torres Age: 33 yrs Sex: Female : 1990 Arrival Date: 06/17/2024 Time: 09:17 Bed 16 Private MD: Diagnosis: Unspecified injury of head, initial encounter;Concussion without loss of consciousness;Postconcussional syndrome Presentation: 06/17 09:29 Chief complaint: Patient states: she slipped and fell on Thursday , hit back of head iw on bunk bed, has been vomiting and fatigued since then. Coronavirus screen: At this time, the client does not indicate any symptoms associated with coronavirus-19. Ebola Screen: No symptoms or risks identified at this time. Initial Sepsis Screen: Does the patient meet any 2 criteria? No. Patient's initial sepsis screen is negative. Does the patient have a suspected source of infection? No. Patient's initial sepsis screen is negative. Risk Assessment: Do you want to hurt yourself or someone else? Patient reports no desire to harm self or others. 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 - Infectious Disease History:: Denies. - Family history:: not pertinent. - Social history:: Smoking status: Patient denies any tobacco usage or history of. - Hospitalizations: : No recent hospitalization is reported. Screenin:58 [facility] ED Fall Risk Assessment (Adult) History of falling in the last 3 months, kc6 including since admission Yes- single mechanical fall (1 pt) Confusion or Disorientation No (0 pts) Intoxicated or Sedated No (0 pts) Impaired Gait No (0 pts) Mobility Assist Device Used No (0 pt) Altered Elimination No (0 pt) Score/Fall Risk Level 0 - 2 = Low Risk Oriented to surroundings. Abuse screen: Denies threats or abuse. Denies injuries from another. Nutritional screening: No deficits noted. Tuberculosis screening: No symptoms or risk factors identified. Assessment: 09:58 General: Appears in no apparent distress. comfortable, well groomed, well developed, kc6 Behavior is calm, cooperative, appropriate for age, quiet. Pain: Complains of pain in base of the skull Pain does not radiate. Quality of pain is described as dull, throbbing, Pain began suddenly, Is intermittent. Neuro: Level of Consciousness is awake, alert, obeys commands, Oriented to person, place, time, situation, Appropriate for age Reports headache in right in left occipital area. Cardiovascular: Capillary refill < 3 seconds. Respiratory: Airway is patent Trachea midline Respiratory effort is even, unlabored, Respiratory pattern is regular, symmetrical. GI: Abdomen is flat, non-distended, Bowel sounds present X 4 quads. Abd is soft and non tender X 4 quads. Reports nausea, vomiting, Patient currently denies abdominal pain, diarrhea. : No signs and/or symptoms were reported regarding the genitourinary system. Urine is clear. EENT: No signs and/or symptoms were reported regarding the EENT system. Derm: No signs and/or symptoms reported regarding the dermatologic system. Skin is intact, is healthy with good turgor, Skin is pink, warm \T\ dry. Musculoskeletal: No signs and/or symptoms reported regarding the musculoskeletal system. Circulation, motion, and sensation intact. Range of motion: intact in all extremities. 10:49 Reassessment: Patient appears in no apparent distress at this time. No changes from kc6 previously documented assessment. Patient and/or family updated on plan of care and expected duration. Pain level reassessed. Patient is alert, oriented x 3, equal unlabored respirations, skin warm/dry/pink. 11:33 Reassessment: Patient appears in no apparent distress at this time. No changes from kc6 previously documented assessment. Patient and/or family updated on plan of care and expected duration. Pain level reassessed. Patient is alert, oriented x 3, equal unlabored respirations, skin warm/dry/pink. Vital Signs: 09:37 BP 147 / 90; Pulse 73; Resp 16; Temp 98.1; Pulse Ox 100% on R/A; Weight 95.25 kg; iw Height 5 ft. 4 in. ; Pain 7/10; 10:11 BP 126 / 84; kc6 11:33 BP 117 / 74; Pulse 87; Resp 18 S; Pulse Ox 98% on R/A; kc6 09:37 Body Mass Index 36.05 (95.25 kg, 162.56 cm) iw 09:37 Pain Scale: Adult iw [place] Coma Score: 09:35 Eye Response: spontaneous(4). Motor Response: obeys commands(6). Verbal Response: rn oriented(5). Total: 15. 11:23 Eye Response: spontaneous(4). Motor Response: obeys commands(6). Verbal Response: rn oriented(5). Total: 15. ED Course: 09:19 Patient arrived in ED. im 09:19 Clarke Kaminski MD is Attending Physician. rn 09:30 Triage completed. iw 09:31 Renuka Lucas, RN is Primary Nurse. kc6 09:54 Initial lab(s) drawn, by ca, sent to lab. Urine collected: clean catch specimen, clear. kc6 Inserted saline lock: 20 gauge in left forearm, using aseptic technique. Blood collected. Flushed with 10 mL NS. Patient maintains SpO2 saturation greater than 95% on room air. 09:57 Patient has correct armband on for positive identification. Bed in low position. Call kc6 light in reach. Side rails up X 1. Pulse ox on. NIBP on. Door closed. Noise minimized. Lights dimmed. Warm blanket given. Pillow given. Verbal reassurance given. 09:58 Arm band placed on. kc6 10:38 CT Head C Spine In Process Unspecified. EDMS 11:54 No provider procedures requiring assistance completed. IV discontinued, intact, kc6 bleeding controlled, No redness/swelling at site. Pressure dressing applied. Administered Medications: 09:53 Drug: NS 0.9% IV 1000 ml IV at 1000 ml once; to be given as a bolus over 60 minutes kc6 Route: IV; Rate: 1000 ml; Site: left forearm; 10:49 Follow up: Response: No adverse reaction; IV Status: Completed infusion; IV Intake: kc6 1000ml 09:54 Drug: Ondansetron IVP 4 mg IVP once; over 2 minutes Route: IVP; Site: left forearm; kc6 10:48 Follow up: Response: No adverse reaction; Nausea is decreased kc6 11:32 Drug: Promethazine IVP 12.5 mg IVP once Route: IVP; Site: left forearm; kc6 11:54 Follow up: Response: No adverse reaction; Nausea is decreased kc6 Medication: 11:55 VIS not applicable for this client. kc6 Intake: 10:49 IV: 1000ml; Total: 1000ml. kc6 Outcome: 11:25 Discharge ordered by . rn 11:54 Discharged to home ambulatory, with significant other, kc6 11:54 Condition: good 11:54 Discharge instructions given to patient, significant other, Instructed on discharge instructions, follow up and referral plans. medication usage, Demonstrated understanding of instructions, follow-up care, medications, Prescriptions given X 1, 11:55 Patient left the ED. kc6 Signatures: Dispatcher [employer] Adilia Foley, Clarke Pitt RN, MD MD rn Campbell, Kaitlyn, RN RN kc6 Yue Bender
[2024-06-17] MEDS ORDERED: PROMETHAZINE INJ 25 MG/ML AMP ONE (11:28)
[2024-06-17 12:20] VITALS: TEMP 98.1
[2024-06-17 12:27] VITALS: BP 117/74; O2SAT 98
== END 2024-06-17 11:55 | disposition home or self-care (01) ==
LOC: ER 09:17
DX: S06.0X0A Concussion without loss of consciousness, initial encounter (principal)
CPT/HCPCS: 96361; 85025; 80048; 36415; 81025; 85610; 85730; 70450; 72125; 96375; 96374; 99284; J2550; J2405; J7030

== ENCOUNTER 2024-09-24 06:39 | Emergency (ER) | payer BC ==
[2024-09-24] MEDS ORDERED: PROMETHAZINE INJ 25 MG/ML AMP ONE (06:59)
[2024-09-24] MEDS ORDERED: NA CHLORIDE 0.9% 1,000 ML ONE (07:00)
[2024-09-24] MEDS ORDERED: FAMOTIDINE 20 MG/2 ML VIAL IV ONE (07:00)
[2024-09-24 07:19] LABS: Absolute Lymphocytes (CBC) 1.2 K/uL (0.7-4.9); Hematocrit 40.0 % (36.0-45.0); Hemoglobin 14.1 g/dL (12.0-15.0); MCH 31.0 pg (27.0-35.0); MCHC 35.2 g/dL (32.0-36.0); MCV 88.0 fL (80-100); MPV 9.0 fL (7.6-11.3); Nucleated RBC Absolute Count 0.0 (0-0); Nucleated Red Blood Cells % 0.1 % (0-0); RBC Red Blood Cell Count 4.54 M/uL (3.86-4.86); White Blood Count 7.30 thou/uL (4.3-10.9)
[2024-09-24] MEDS ORDERED: MORPHINE 4 MG/ML SYR ONE (07:24)
[2024-09-24 07:40] LABS: ALT/SGPT 28.0 U/L (13-56); AST/SGOT 13.0 U/L (15-37); Albumin 3.7 g/dL (3.4-5.0); Albumin/Globulin Ratio 1.0 (1.1-1.8); Alkaline Phosphatase 68.0 U/L (45-117); Anion Gap 13.9 mEq/L (5.0-15.0); BUN Blood Urea Nitrogen 10.0 mg/dL (7-18); Globulin 3.7 g/dL (2.3-3.5); Glucose Level 163.0 mg/dL (74-106); Lipase 38.0 U/L (13-75); Potassium 3.9 mEq/L (3.5-5.1)
[2024-09-24 09:01] LABS: Urine Crystals Unidentified Few /HPF (None Seen); Urine Culture Reflex Order NOT NEEDED; Urine Microscopic Reflex YN ORDER UMIC
--- NOTE | 2024-09-24 09:59 | RAD REPORT ---
EXAMINATION: CT ABDOMEN AND PELVIS WITH CONTRAST CLINICAL INDICATION: Abdominal pain TECHNIQUE: CT abdomen and pelvis was performed, after the administration of 100 cc Isovue-300.. Sagit farrah and coronal reconstructions were obtained. One or more of the following dose reduction techniques were used: Automated exposure control, adjustment of the mA and kV according to patient si ze, and iterative reconstruction. Unless otherwise specified, incidental findings do not require dedicated imaging follow-up. [id number]. Oral contrast was not given which limits evaluation of bowel and appendix. COMPARISON: .2013 CT and 2021 pelvic ultrasound FINDINGS: Fatty liver. The spleen, pancreas, adrenals and kidneys appear unremarkable No evidence of diverticulitis. Normal appendix. Mild enlargement of the ovaries with many follicles. : IMPRESSION: Fatty liver Mild enlargement of the ovaries with many follicles can be seen with polycystic ovarian syndrome
--- NOTE | 2024-09-24 10:14 | ER ---
Nurse's Notes [facility] Name: Ingris Torres Age: 34 yrs Sex: Female : 1990 Arrival Date: 09/24/2024 Time: 06:39 Bed 6 Private MD: Diagnosis: Abdominal pain Presentation: 09/24 06:54 Chief complaint: Patient states: started vomiting around 0100, now vomiting a pink/ vc1 reddish brown with left sided abdominal pain. Coronavirus screen: Client denies travel out of the [place] in the last 14 days. At this time, the client does not indicate any symptoms associated with coronavirus-19. Ebola Screen: Patient negative for fever greater than or equal to 101.5 degrees Fahrenheit, and additional compatible Ebola Virus Disease symptoms Patient denies exposure to infectious person. Patient denies travel to an Ebola-affected area in the 21 days before illness onset. No symptoms or risks identified at this time. Initial Sepsis Screen: Does the patient meet any 2 criteria? No. Patient's initial sepsis screen is negative. Does the patient have a suspected source of infection? No. Patient's initial sepsis screen is negative. Risk Assessment: Do you want to hurt yourself or someone else? Patient reports no desire to harm self or others. Onset of symptoms was September 24, 2024 at 01:00. 06:54 Method Of Arrival: Ambulatory vc1 06:54 Acuity: CLEOPATRA 3 vc1 Triage Assessment: 07:00 General: Appears in no apparent distress. uncomfortable, obese, well groomed, well vc1 developed, well nourished, Behavior is calm, cooperative, appropriate for age. Pain: Complains of pain in left upper quadrant and left lower quadrant Pain does not radiate. Pain currently is 5 out of 10 on a pain scale. Also complains of nausea, vomiting. EENT: No deficits noted. No signs and/or symptoms were reported regarding the EENT system. Neuro: Level of Consciousness is awake, alert, obeys commands, Oriented to person, place, time, situation, Appropriate for age. Cardiovascular: Capillary refill < 3 seconds Patient's skin is warm and dry. Respiratory: Airway is patent Respiratory effort is even, unlabored, Respiratory pattern is regular, symmetrical. GI: Reports lower abdominal pain, upper abdominal pain, vomiting. : No deficits noted. No signs and/or symptoms were reported regarding the genitourinary system. Derm: No deficits noted. No signs and/or symptoms reported regarding the dermatologic system. Musculoskeletal: No deficits noted. No signs and/or symptoms reported regarding the musculoskeletal system. Circulation, motion, and sensation intact. Range of motion: intact in all extremities. 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 - Infectious Disease History:: Denies. - Social history:: Smoking status: Patient denies any tobacco usage or history of. Screenin:58 [facility] ED Fall Risk Assessment (Adult) History of falling in the last 3 months, vc1 including since admission No falls in past 3 months (0 pts) Confusion or Disorientation No (0 pts) Intoxicated or Sedated No (0 pts) Impaired Gait No (0 pts) Mobility Assist Device Used No (0 pt) Altered Elimination No (0 pt) Score/Fall Risk Level 0 - 2 = Low Risk Oriented to surroundings, Maintained a safe environment, Educated pt \T\ family on fall prevention, incl call for assistance when getting out of bed, Assessed \T\ reinforced patient's understanding of fall precautions, Hourly rounding (assess needs \T\ fall precautionary measures) done. Abuse screen: Denies threats or abuse. Nutritional screening: No deficits noted. Tuberculosis screening: No symptoms or risk factors identified. Assessment: 07:15 Reassessment: Patient appears in no apparent distress at this time. Patient and/or hb family updated on plan of care and expected duration. Pain level reassessed. Patient is alert, oriented x 3, equal unlabored respirations, skin warm/dry/pink. 07:40 General: Appears in no apparent distress. uncomfortable, well groomed, well developed, af3 Behavior is calm, cooperative, appropriate for age. Pain: Pain currently is 6 out of 10 on a pain scale. Neuro: Level of Consciousness is awake, alert, obeys commands, Oriented to person, place, time, situation, Appropriate for age. Cardiovascular: Patient's skin is warm and dry. Respiratory: Airway is patent Respiratory effort is even, unlabored, Respiratory pattern is regular, symmetrical. GI: Pt is actively vomiting Reports lower abdominal pain, upper abdominal pain, nausea, vomiting. : No signs and/or symptoms were reported regarding the genitourinary system. EENT: No signs and/or symptoms were reported regarding the EENT system. Derm: Skin is intact, Skin is pale. Musculoskeletal: No signs and/or symptoms reported regarding the musculoskeletal system. Vital Signs: 06:54 BP 163 / 111; Pulse 72; Resp 14; Temp 96.8; Pulse Ox 100% ; Weight 90.72 kg; Height 5 vc1 ft. 5 in. ; Pain 5/10; 07:45 BP 120 / 79; Pulse 78; Resp 18; Pulse Ox 97% on R/A; Pain 6/10; af3 10:11 BP 136 / 87; Pulse 79; Resp 16; Pulse Ox 99% on R/A; hb 06:54 Body Mass Index 33.28 (90.72 kg, 165.1 cm) vc1 06:54 Pain Scale: Adult vc1 07:45 Pain Scale: Adult af3 ED Course: 06:40 Patient arrived in ED. jj6 06:54 Cydney Velasquez MD is Attending Physician. ms3 06:57 Triage completed. vc1 06:58 Arm band placed on left wrist. vc1 06:58 Patient has correct armband on for positive identification. Bed in low position. Call vc1 light in reach. Adult w/ patient. Provided Education on: Plan of care. Pulse ox on. NIBP on. 07:00 No provider procedures requiring assistance completed. Inserted saline lock: 20 gauge af3 in right antecubital area, using aseptic technique. Blood collected. Flushed with 10 mL NS. 08:12 Lisha Edwards, RN is Primary Nurse. hb 09:44 CT Abd/Pelvis - IV Contrast Only In Process Unspecified. EDMS 10:41 IV discontinued, intact, bleeding controlled, No redness/swelling at site. Pressure ss dressing applied. Administered Medications: 07:39 Drug: Famotidine IVP 20 mg IVP once; dilute with 10 mL 0.9% NaCl; give over 2 minutes af3 Route: IVP; Site: right antecubital; 08:00 Follow up: Response: No adverse reaction af3 07:39 Drug: Promethazine IM 12.5 mg IM once Route: IM; Site: left ventrogluteal; af3 08:39 Follow up: Response: No adverse reaction; Nausea is decreased af3 07:39 Drug: morphine IVP or IV 4 mg IVP once over 4 mins Route: IVP; Infused Over: 4 mins; af3 Site: right antecubital; 08:00 Follow up: Response: No adverse reaction; Pain is decreased; RASS: Alert and Calm (0) af3 07:40 Drug: NS 0.9% IV 1000 ml IV at 1 bolus Per protocol; to be given as a bolus over 60 af3 minutes Route: IV; Rate: 1 bolus; Site: right antecubital; 08:39 Follow up: Response: No adverse reaction; IV Status: Completed infusion; IV Intake: af3 1000ml Medication: 06:59 VIS not applicable for this client. vc1 Intake: 08:39 IV: 1000ml; Total: 1000ml. af3 Outcome: 10:13 Discharge ordered by . sp3 10:41 Discharged to home ambulatory, with significant other, ss 10:41 Condition: good 10:41 Discharge instructions given to patient, significant other, Instructed on discharge instructions, follow up and referral plans. Demonstrated understanding of instructions, follow-up care, medications, 10:42 Patient left the ED. ss Signatures: Dispatcher [employer] EDMS Shira Tyson RN RN Lisha Edwards RN RN Kevon Simmons DO DO ms3 Cydney Velasquez MD MD sp3 Erlinda Stinson jj6 Sully Brownlee RN RN vc1 Enriqueta Whitaker RN RN af3
--- NOTE | 2024-09-24 10:14 | EDPHYS ---
Physician Documentation [facility] Name: Ingris Torres Age: 34 yrs Sex: Female : 1990 Arrival Date: 09/24/2024 Time: 06:39 Bed 6 Private MD: ED Physician Cydney Velasquez HPI: 09/24 07:38 This 34 yrs old Female presents to ER via Ambulatory with complaints of sp3 Nausea/Vomiting, abdominal pain. 07:38 34-year-old female with history of ADHD, depression, Corbin's thyroiditis, sp3 infertility now presents to the ED with chief complaint of right upper quadrant abdominal pain since approximately 1 AM after eating dinner. Significant others in the room who had the same food he denies any symptoms. Patient has no past surgical history. 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 She states that her emesis was food mixed with mucus and potentially "dark stuff". No prior history of GI bleed. Patient not on any anticoagulants or any antiplatelet agents.. PLANNER: 06:59 LMP 09/02/2024, unknown vc1 Historical: - Allergies: 06:57 PENICILLINS; vc1 06:57 Tape; vc1 06:57 Zofran; vc1 - PMHx: 06:57 ADD/ADHD; Depression; Corbin's; Overdose; infertility; vc1 - PSHx: 06:57 None; vc1 - Immunization history:: Client reports receiving the 2nd dose of the Covid vaccine. - Infectious Disease History:: Denies. - Social history:: Smoking status: Patient denies any tobacco usage or history of. ROS: 07:40 Constitutional: Negative for fever, chills, and weight loss, Eyes: Negative for injury, sp3 pain, redness, and discharge, ENT: Negative for injury, pain, and discharge, Neck: Negative for injury, pain, and swelling, Cardiovascular: Negative for chest pain, palpitations, and edema, Respiratory: Negative for shortness of breath, cough, wheezing, and pleuritic chest pain, Back: Negative for injury and pain, : Negative for injury, bleeding, discharge, and swelling, MS/Extremity: Negative for injury and deformity, Skin: Negative for injury, rash, and discoloration, Neuro: Negative for headache, weakness, numbness, tingling, and seizure, 07:40 All other systems are negative, Exam: 07:41 Constitutional: This is a well developed, well nourished patient who is awake, alert, sp3 and in no acute distress. Head/Face: Normocephalic, atraumatic. Eyes: Pupils equal round and reactive to light, extra-ocular motions intact. Lids and lashes normal. Conjunctiva and sclera are non-icteric and not injected. Cornea within normal limits. Periorbital areas with no swelling, redness, or edema. ENT: Nares patent. No nasal discharge, no septal abnormalities noted. External auditory canals are clear. Oropharynx with no redness, swelling, or masses, exudates, or evidence of obstruction, uvula midline. Mucous membranes moist. Neck: Trachea midline, no thyromegaly or masses palpated, and no cervical lymphadenopathy. Supple, full range of motion without nuchal rigidity, or vertebral point tenderness. No Meningismus. Chest/axilla: Normal chest wall appearance and motion. Nontender with no deformity. No lesions are appreciated. Cardiovascular: Regular rate and rhythm with a normal S1 and S2. No gallops, murmurs, or rubs. Normal PMI, no JVD. No pulse deficits. Respiratory: Lungs have equal breath sounds bilaterally, clear to auscultation and percussion. No rales, rhonchi or wheezes noted. No increased work of breathing, no retractions or nasal flaring. Back: No spinal tenderness. No costovertebral tenderness. Full range of motion. Skin: Warm, dry with normal turgor. Normal color with no rashes, no lesions, and no evidence of cellulitis. MS/ Extremity: Pulses equal, no cyanosis. Neurovascular intact. Full, normal range of motion. Neuro: Awake and alert, GCS 15, oriented to person, place, time, and situation. Cranial nerves II-XII grossly intact. Motor strength 5/5 in all extremities. Sensory grossly intact. Cerebellar exam normal. Normal gait. Psych: Awake, alert, with orientation to person, place and time. Behavior, mood, and affect are within normal limits. 07:41 Abdomen/GI: Patient with right upper quadrant abdominal pain to palpation without peritoneal signs, rebound or guarding., Vital Signs: 06:54 BP 163 / 111; Pulse 72; Resp 14; Temp 96.8; Pulse Ox 100% ; Weight 90.72 kg; Height 5 vc1 ft. 5 in. ; Pain 5/10; 07:45 BP 120 / 79; Pulse 78; Resp 18; Pulse Ox 97% on R/A; Pain 6/10; af3 10:11 BP 136 / 87; Pulse 79; Resp 16; Pulse Ox 99% on R/A; hb 06:54 Body Mass Index 33.28 (90.72 kg, 165.1 cm) vc1 06:54 Pain Scale: Adult vc1 07:45 Pain Scale: Adult af3 MDM: 06:53 Medical Screening Exam initiated ms3 07:43 Data reviewed: vital signs, nurses notes, lab test result(s), radiologic studies. ED sp3 course: 34-year-old female with right upper quadrant abdominal pain. Differential diagnosis is broad and includes biliary colic, cholelithiasis, cholecystitis, choledocholithiasis, pancreatitis, gastritis, colitis, functional abdominal pain, constipation, kidney stone/ureterolithiasis spectrum, UTI/pyelonephritis spectrum, musculoskeletal, among others. Workup will include CT scan of the abdomen pelvis with IV contrast, urinalysis, general labs and supportive care. Treatment with IV fluids, morphine, Pepcid and Phenergan for symptomatic control. Disposition pending workup and patient course.. 10:12 ED course: Full workup negative. Patient is much improved. She is allergic to Zofran sp3 and states she has Phenergan p.o. tablets at home and does not need anymore. We will safe discharge her home with general precautions and instructions to return if she worsens.. 09/24 06:53 Order name: CBC with Diff; Complete Time: 07:45 ms3 09/24 06:53 Order name: CMP; Complete Time: 07:45 ms3 09/24 06:53 Order name: Lipase; Complete Time: 07:45 ms3 09/24 07:46 Order name: UA Rfx Jozef Cult if indicated; Complete Time: 09:10 sp3 09/24 09:24 Order name: CT Abd/Pelvis - IV Contrast Only; Complete Time: 10:06 sp3 09/24 06:53 Order name: IV Saline Lock; Complete Time: 07:52 ms3 09/24 06:53 Order name: Labs collected and sent; Complete Time: 07:53 ms3 Administered Medications: 07:39 Drug: Famotidine IVP 20 mg IVP once; dilute with 10 mL 0.9% NaCl; give over 2 minutes af3 Route: IVP; Site: right antecubital; 08:00 Follow up: Response: No adverse reaction af3 07:39 Drug: Promethazine IM 12.5 mg IM once Route: IM; Site: left ventrogluteal; af3 08:39 Follow up: Response: No adverse reaction; Nausea is decreased af3 07:39 Drug: morphine IVP or IV 4 mg IVP once over 4 mins Route: IVP; Infused Over: 4 mins; af3 Site: right antecubital; 08:00 Follow up: Response: No adverse reaction; Pain is decreased; RASS: Alert and Calm (0) af3 07:40 Drug: NS 0.9% IV 1000 ml IV at 1 bolus Per protocol; to be given as a bolus over 60 af3 minutes Route: IV; Rate: 1 bolus; Site: right antecubital; 08:39 Follow up: Response: No adverse reaction; IV Status: Completed infusion; IV Intake: af3 1000ml Disposition Summary: 09/24/24 10:13 Discharge Ordered Notes: Location: Home sp3 Condition: Stable sp3 Diagnosis - Abdominal pain sp3 Followup: sp3 - With: Private Physician - When: Upon discharge from the Emergency Department - Reason: Continuance of care Discharge Instructions: - Discharge Summary Sheet sp3 - Abdominal Pain, Adult sp3 Forms: - Medication Reconciliation Form sp3 - Antibiotic Education sp3 - Prescription Opioid Use sp3 - Patient Portal Instructions sp3 - Leadership Thank You Letter sp3 Signatures: Dispatcher [employer] Lisha Ponce RN RN Kevon Simmons DO DO ms3 Cydney Velasquez MD MD sp3 Sully Brownlee RN RN vc1 Enriqueta Whitaker RN RN af3
[2024-09-24 15:54] VITALS: TEMP 96.8
[2024-09-24 15:57] VITALS: BP 136/87; O2SAT 99
== END 2024-09-24 10:42 | disposition home or self-care (01) ==
LOC: ER 06:39
DX: R10.11 Right upper quadrant pain (principal); R11.2 Nausea with vomiting, unspecified
CPT/HCPCS: 96361; 85025; 81001; 36415; 83690; 80053; 74177; 96375; 96372; 96374; 99284; Q9967; J2550; J7030